=== PATIENT | female | born 1935 | race African-American/Black ===

== ENCOUNTER → 2017-03-17 | Outpatient (CLI) | payer MEDICARE ==
[2016-03-19 01:50] VITALS: BP 136/64
[~2017-03-17] MED LIST: AMLO10TA4 PO; ASPI81TA2 PO; ATEN50TA PO; HUM100VI5 SQ; HYDR12.58 PO; LISI-334 PO; METF500T4 PO; SIMV20TA3 PO
--- NOTE | 2017-03-17 12:11 | RAD ---
Abdominal ultrasound, 03/17/2017: History: Elevated right hemidiaphragm The gallbladder is within normal limits in size. There is no sonographic evidence of cholelithiasis. The gallbladder rosales are not thickened. No bile duct dilatation is evident. There is no evidence of a hepatic mass. The visualized portions of the pancreatic body are unremarkable. Other portions of the pancreas were obscured by overlying bowel. The spleen is of normal size. There is a 1.7 cm parapelvic renal cyst on the right. The kidneys are otherwise unremarkable. There is mild aortic atherosclerotic plaquing without evidence of aneurysm. The inferior vena cava is unremarkable. No free fluid is evident in the abdomen. IMPRESSION: 1. Small right renal cyst. 2. No acute abdominal abnormality is detected.
== END | disposition home or self-care (01) ==
LOC: US 09:42
PROVIDERS: ATTEND Nurse Practitioner Adult Health
DX: N28.1 Cyst of kidney, acquired (principal)
CPT/HCPCS: 76700

== ENCOUNTER 2017-12-11 13:30 | Inpatient (IN) | payer MEDICARE ==
[2017-12-11] VITALS (16 sets, daily range): BP systolic 80–132; BP diastolic 39–61
[~2017-12-11] VITALS: Ht 160 cm; Wt 63.1 kg
[~2017-12-11 13:30] MED LIST changes: +ASPI-630 PO; -ASPI81TA2 PO
[2017-12-11] MEDS ORDERED: OLOP5DRO EACHEYE (14:41)
[2017-12-11] MEDS ORDERED: INSU100V13 SQ (14:41)
[2017-12-11] MEDS ORDERED: ATORVASTATIN CA80 MG PO (14:41)
[2017-12-11] MEDS ORDERED: FLUT9.9S NS (14:41)
[2017-12-11] MEDS ORDERED: CARV12.5 PO (14:41)
[2017-12-11] MEDS ORDERED: ALBU1.25 NEB (14:41)
[2017-12-11] MEDS ORDERED: FERR-26 PO (14:41)
[2017-12-11] MEDS ORDERED: SODI30SP NS (14:41)
[2017-12-11] MEDS ORDERED: INSU200I SQ (14:43)
[2017-12-11] MEDS ORDERED: NON FORMULARY ITEM (Albuterol Sulfate (Albuterol Sulfate Neb Soln) 1 VIAL) NEB PRN (14:45)
[2017-12-11 14:50] LABS: INFLUENZA A PATIENT NEGATIVE (NEGATIVE); INFLUENZA B PATIENT NEGATIVE (NEGATIVE)
[2017-12-11 14:51] LABS: BASO # 0.1 x10^3/uL (0.0-0.2); BASO % 1 % (0-3); EOS % 1 % (0-3); HEMATOCRIT 30.2 % (36.0-47.0); LYMPH # 1.4 x10^3/uL (1.0-4.8); LYMPH % 22 % (24-48); MEAN CORPUSCULAR HEMOGLOBIN 27 pg (25-35); MEAN CORPUSCULAR HGB CONC 33 g/dL (31-37); MEAN CORPUSCULAR VOLUME 83 fL (79-100); MONO # 0.5 x10^3/uL (0.0-1.1); MONO % 8 % (0-9); NEUT # 4.4 x10^3uL (1.8-7.7); NEUT % 68 % (31-73); PLATELET COUNT 193 x10^3/uL (140-400); RED BLOOD COUNT 3.63 x10^6/uL (3.50-5.40); RED CELL DISTRIBUTION WIDTH 12.9 % (11.5-14.5); WHITE BLOOD COUNT 6.5 x10^3/uL (4.0-11.0)
[2017-12-11] MEDS: IV NORMAL SALINE 1,000ML 1,000 ML IV SCH ×4 (15:11→19:54)
[2017-12-11 15:15] LABS: ALBUMIN 2.4 g/dL (3.4-5.0); ALBUMIN/GLOBULIN RATIO 0.5 (1.0-1.7); CALCIUM 8.9 mg/dL (8.5-10.1); CREATININE 1.3 mg/dL (0.6-1.0); GFR 47.2; MAGNESIUM 1.2 mg/dL (1.8-2.4); POTASSIUM 3.3 mmol/L (3.5-5.1); TOTAL BILIRUBIN 0.5 mg/dL (0.2-1.0); TOTAL PROTEIN 6.8 g/dL (6.4-8.2)
--- NOTE | 2017-12-11 15:18 | EKG ---
[address] [address] Test Date: 2017-12-11 Test Time: 15:14:58 Pat Name: TUNDE LORENZO Department: Room: ICU01 1 Gender: F Executive Producer: : [id number] Requested By: CAMACHO DUNHAM Order Number: [id number] Reading MD: Ralph Alejandra MD Measurements Intervals [place] Rate: 91 P: 70 WV: 168 QRS: 45 QRSD: 78 T: 40 QT: 372 QTc: 459 Interpretive Statements SINUS RHYTHM CONSISTENT WITH ANTEROSEPTAL INFARCT Electronically Signed On 12-16-2017 16:49:15 KILN HAND by Ralph Alejandra MD
[2017-12-11] MEDS ORDERED: ALBUTEROL SULFATE 2.5 MG/3 ML NEBU. NEB PRN (15:30)
[2017-12-11] MEDS: INSULIN ASPART 300 UNITS/3 ML INSULN.PEN SQ SCH ×2 (16:06→21:00)
--- NOTE | 2017-12-11 16:10 | RAD ---
Chest, 2 views, 12/11/2017: History: Cough Comparison is made to a study from 06/17/2006. The heart size and pulmonary vascularity are normal. No pulmonary infiltrates are seen. There is no evidence of pleural fluid. Moderate spurring is present in the spine. IMPRESSION: No acute cardiopulmonary abnormality is detected.
[2017-12-11 16:14] LABS: BILIRUBIN,URINE NEG (NEG); CLARITY,URINE TURBID; COLOR,URINE YELLOW; GLUCOSE,URINE >=1000 mg/dL (NEG)
[2017-12-11 16:15] LABS: AMORPHOUS SEDIMENT,UR PRESENT /HPF; BACTERIA,URINE MANY /HPF (0-FEW); NITRITE,URINE NEG (NEG); SQUAMOUS EPITHELIAL CELL,UR MOD /LPF; UROBILINOGEN,URINE 1 mg/dL (0.2 mg/dL)
[2017-12-11] MEDS ORDERED: POTASSIUM CHLORIDE 20 MEQ TABLET.ER. PO ONE (16:15)
[2017-12-11] MEDS ORDERED: MAGNESIUM SULFATE 2GM 50 ML IV ONE (16:30)
[2017-12-11] MEDS ORDERED: IV NORMAL SALINE 1,000ML 1,000 ML IV ONE (16:45)
[2017-12-11] MEDS: CARVEDILOL 12.5 MG TABLET PO SCH (16:49)
[2017-12-11] MEDS: metFORMIN 500 MG TABLET PO SCH (16:49)
[2017-12-11] MEDS: SODIUM CHLORIDE 0.65% NASAL SPRAY 45ML BOTTLE. NS SCH ×2 (17:00→20:43)
[2017-12-11] MEDS ORDERED: INSULIN ASPART 300 UNITS/3 ML INSULN.PEN SQ PRN ×2 (17:30)
[2017-12-11] MEDS ORDERED: VANCOMYCIN PER PHARMACY MC PRN (19:30)
[2017-12-11] MEDS: VANCOMYCIN PER PHARMACY MC PRN ×2 (20:00→22:24)
[2017-12-11] MEDS: ENOXAPARIN 30 MG/0.3 ML DISP.SYRIN. SQ SCH (20:44)
[2017-12-11] MEDS: LACTOBACILLUS RHAMNOSUS GG 1 CAPSULE. PO SCH (20:44)
[2017-12-11] MEDS: KETOTIFEN FUMARATE 0.025% OPHT SOLUTION BOTTLE. OU SCH (20:44)
[2017-12-11] MEDS: ATORVASTATIN CALCIUM 20 MG TABLET PO SCH (20:44)
[2017-12-11] MEDS ORDERED: INSULIN DETEMIR 300 UNITS/3 ML INSULN.PEN. SQ SCH (21:00)
[2017-12-11] MEDS ORDERED: VANCOMYCIN 1.5 GM in IV NORMAL SALINE 500ML 500 ML IV ONE (21:00)
[2017-12-11] MEDS: INSULIN DETEMIR 300 UNITS/3 ML INSULN.PEN. SQ SCH (21:00)
[2017-12-11 23:01] LABS: CALCIUM 8.9 mg/dL (8.5-10.1); GFR 63.9; POTASSIUM 3.3 mmol/L (3.5-5.1)
[2017-12-12] VITALS (18 sets, daily range): BP systolic 84–153; BP diastolic 44–77
[2017-12-12] MEDS: DEXTROSE 50% 25 GM / 50ML DISP.SYRIN. IV PRN (00:50)
[2017-12-12 03:16] LABS: HEMOGLOBIN A1C 8.9 % (4.8-5.6)
[2017-12-12 06:48] LABS: BASO % 0 % (0-3); EOS # 0.1 x10^3/uL (0.0-0.7); EOS % 1 % (0-3); HEMATOCRIT 27.5 % (36.0-47.0); HEMOGLOBIN 9.4 g/dL (12.0-15.5); LYMPH # 1.4 x10^3/uL (1.0-4.8); LYMPH % 28 % (24-48); MEAN CORPUSCULAR HEMOGLOBIN 28 pg (25-35); MEAN CORPUSCULAR HGB CONC 34 g/dL (31-37); MEAN CORPUSCULAR VOLUME 82 fL (79-100); MONO # 0.4 x10^3/uL (0.0-1.1); MONO % 9 % (0-9); NEUT % 62 % (31-73); PLATELET COUNT 178 x10^3/uL (140-400); RED BLOOD COUNT 3.35 x10^6/uL (3.50-5.40); WHITE BLOOD COUNT 4.9 x10^3/uL (4.0-11.0)
[2017-12-12 07:09] LABS: ALBUMIN 2.1 g/dL (3.4-5.0); ALBUMIN/GLOBULIN RATIO 0.5 (1.0-1.7); CALCIUM 8.4 mg/dL (8.5-10.1); CREATININE 0.8 mg/dL (0.6-1.0); GFR 82.7; MAGNESIUM 1.4 mg/dL (1.8-2.4); POTASSIUM 3.5 mmol/L (3.5-5.1); TOTAL BILIRUBIN 0.4 mg/dL (0.2-1.0); TOTAL PROTEIN 6.2 g/dL (6.4-8.2)
[2017-12-12] MEDS: INSULIN ASPART 300 UNITS/3 ML INSULN.PEN SQ SCH ×7 (07:30→20:56)
[2017-12-12] MEDS: hydroCHLOROthiazide 25 MG TABLET PO SCH (08:55)
[2017-12-12] MEDS: LACTOBACILLUS RHAMNOSUS GG 1 CAPSULE. PO SCH ×2 (08:55→20:22)
[2017-12-12] MEDS: amLODIPine BESYLATE 10 MG TABLET PO SCH ×2 (08:56→09:00)
[2017-12-12] MEDS: FERROUS SULFATE 325 MG TABLET. PO SCH (08:56)
[2017-12-12] MEDS: CARVEDILOL 12.5 MG TABLET PO SCH ×2 (08:56→16:43)
[2017-12-12] MEDS: FLUTICASONE 50MCG/NASAL SPRAY 16GM BOTTLE. NS SCH (08:56)
[2017-12-12] MEDS: SODIUM CHLORIDE 0.65% NASAL SPRAY 45ML BOTTLE. NS SCH ×4 (08:56→20:26)
[2017-12-12] MEDS: KETOTIFEN FUMARATE 0.025% OPHT SOLUTION BOTTLE. OU SCH ×2 (08:56→20:26)
[2017-12-12] MEDS: metFORMIN 500 MG TABLET PO SCH ×2 (08:57→16:44)
[2017-12-12] MEDS: INSULIN DETEMIR 300 UNITS/3 ML INSULN.PEN. SQ SCH ×3 (08:59→20:56)
[2017-12-12] MEDS: LISINOPRIL 20 MG TABLET PO SCH (09:00)
[2017-12-12] MEDS: HYDROcodone/CHLORPHEN POLIS 5 ML SUS.ER.12H PO PRN (11:19)
[2017-12-12] MEDS: guaiFENesin DM 600/30MG 1 TAB TAB.ER.12H PO SCH ×2 (11:19→20:22)
[2017-12-12] MEDS: IPRATRPIUM/ALBUTEROL 0.5/2.5MG 3 ML NEBU. NEB SCH ×3 (11:46→21:16)
[2017-12-12] MEDS ORDERED: DICYCLOMINE HCL 10 MG CAPSULE PO PRN (15:15)
[2017-12-12] MEDS ORDERED: ACETAMINOPHEN 325 MG TABLET PO PRN (15:30)
[2017-12-12] MEDS ORDERED: MAGNESIUM SULFATE 2GM 50 ML IV ONE (15:30)
[2017-12-12] MEDS: IV NORMAL SALINE 1,000ML 1,000 ML IV SCH (17:52)
[2017-12-12] MEDS ORDERED: ONDANSETRON PF 4 MG/2 ML VIAL. IV PRN (19:45)
[2017-12-12] MEDS: ENOXAPARIN 30 MG/0.3 ML DISP.SYRIN. SQ SCH (20:21)
[2017-12-12] MEDS: ATORVASTATIN CALCIUM 20 MG TABLET PO SCH (20:22)
[2017-12-12] MEDS: VANCOMYCIN 750 MG in IV NORMAL SALINE 250ML 250 ML IV SCH (21:29)
--- NOTE | 2017-12-13 04:56 | PN ---
DATE: 12/12/2017 SUBJECTIVE: An 82-year-old female in with sepsis, hypotension. The patient is doing some better this morning. OBJECTIVE: VITAL SIGNS: Blood pressure is up to 135/60, respiratory rate 22, pulse 110 to 80. She is afebrile. GENERAL: The patient otherwise looks like she has a bad bladder infection. Chest x-ray was negative. Sed rate was up to 58, white count 4.9; otherwise, alert, still not feeling very well, overall very weak. LUNGS: Diminished throughout. CARDIOVASCULAR: Regular sinus rhythm. ABDOMEN: Soft, nontender. EXTREMITIES: No clubbing, cyanosis, no edema. NEUROLOGIC: The patient is alert and oriented at baseline. IMPRESSION: Sepsis, hypotension, urinary tract infection, anemia of chronic disease. PLAN: We will go ahead and continue to monitor accordingly. IV antibiotic therapy, aggressive pulmonary toilet. Does have some coughing and flu swabs were negative. No elevated temperature there. CAMACHO DUNHAM MD DR: MARCELO/preethi JOB#: [id number] / [id number]
[2017-12-13] MEDS: IPRATRPIUM/ALBUTEROL 0.5/2.5MG 3 ML NEBU. NEB SCH ×4 (05:19→21:19)
[2017-12-13 06:06] VITALS: BP 151/75
[2017-12-13] MEDS: IV NORMAL SALINE 1,000ML 1,000 ML IV SCH ×2 (06:32→20:11)
[2017-12-13] MEDS: hydroCHLOROthiazide 25 MG TABLET PO SCH (08:03)
[2017-12-13] MEDS: guaiFENesin DM 600/30MG 1 TAB TAB.ER.12H PO SCH ×2 (08:03→20:05)
[2017-12-13] MEDS: LACTOBACILLUS RHAMNOSUS GG 1 CAPSULE. PO SCH ×2 (08:03→20:06)
[2017-12-13] MEDS: CARVEDILOL 12.5 MG TABLET PO SCH ×2 (08:04→17:42)
[2017-12-13] MEDS: amLODIPine BESYLATE 10 MG TABLET PO SCH (08:04)
[2017-12-13] MEDS: metFORMIN 500 MG TABLET PO SCH (08:04)
[2017-12-13] MEDS: FERROUS SULFATE 325 MG TABLET. PO SCH (08:04)
[2017-12-13] MEDS: LISINOPRIL 20 MG TABLET PO SCH (08:04)
[2017-12-13] MEDS: KETOTIFEN FUMARATE 0.025% OPHT SOLUTION BOTTLE. OU SCH ×2 (08:05→20:13)
[2017-12-13] MEDS: SODIUM CHLORIDE 0.65% NASAL SPRAY 45ML BOTTLE. NS SCH ×4 (08:05→20:12)
[2017-12-13] MEDS: INSULIN ASPART 300 UNITS/3 ML INSULN.PEN SQ SCH ×6 (08:09→19:57)
[2017-12-13] MEDS: INSULIN DETEMIR 300 UNITS/3 ML INSULN.PEN. SQ SCH (08:11)
[2017-12-13] MEDS: FLUTICASONE 50MCG/NASAL SPRAY 16GM BOTTLE. NS SCH ×2 (09:00→20:05)
[2017-12-13] MEDS ORDERED: FLU VACC QS2017-18 (36MOS+)/PF 0.5 ML SYRINGE. VAX IM ONE (09:00)
[2017-12-13] MEDS ORDERED: PNEUMOC CONJ VACC 23-VALENT 0.5 ML VIAL. VAX IM ONE (09:00)
[2017-12-13 10:26] VITALS: BP 114/62
[2017-12-13 15:23] VITALS: BP 108/65
--- NOTE | 2017-12-13 16:03 | RAD ---
Indication: Cough. Technique: Two-view chest radiograph was obtained. Comparison is from 2 days earlier. Findings: There are new bilateral small pleural effusions. There is some associated atelectasis. There is no airspace disease. Heart is not enlarged and there is no heart failure. There is atheromatous disease in the thoracic aorta. There are degenerative changes in the spine. Leads overlie the patient. Impression: Small pleural effusions with associated atelectasis now present.
[2017-12-13] MEDS: DEXTROSE 50% 25 GM / 50ML DISP.SYRIN. IV PRN (17:21)
[2017-12-13 19:39] VITALS: BP 97/53
[2017-12-13] MEDS ORDERED: IPRATRPIUM/ALBUTEROL 0.5/2.5MG 3 ML NEBU. NEB SCH (20:00)
[2017-12-13] MEDS: ATORVASTATIN CALCIUM 20 MG TABLET PO SCH (20:05)
[2017-12-13] MEDS: ENOXAPARIN 30 MG/0.3 ML DISP.SYRIN. SQ SCH (20:05)
[2017-12-13] MEDS: HYDROcodone/CHLORPHEN POLIS 5 ML SUS.ER.12H PO PRN (20:05)
[2017-12-13 20:35] LABS: VANC TR 5.5 mcg/mL (10.0-20.0)
[2017-12-13] MEDS: VANCOMYCIN 750 MG in IV NORMAL SALINE 250ML 250 ML IV SCH (21:09)
[2017-12-13 23:21] VITALS: BP 119/62
[2017-12-14] MEDS: IPRATRPIUM/ALBUTEROL 0.5/2.5MG 3 ML NEBU. NEB SCH ×3 (05:18→20:12)
[2017-12-14 06:08] VITALS: BP 156/76
[2017-12-14] MEDS: INSULIN ASPART 300 UNITS/3 ML INSULN.PEN SQ SCH ×4 (07:30→21:00)
[2017-12-14] MEDS: VANCOMYCIN PER PHARMACY MC PRN (07:43)
[2017-12-14] MEDS: LACTOBACILLUS RHAMNOSUS GG 1 CAPSULE. PO SCH ×2 (08:07→19:46)
[2017-12-14] MEDS: guaiFENesin DM 600/30MG 1 TAB TAB.ER.12H PO SCH ×2 (08:07→19:46)
[2017-12-14] MEDS: hydroCHLOROthiazide 25 MG TABLET PO SCH (08:07)
[2017-12-14] MEDS: KETOTIFEN FUMARATE 0.025% OPHT SOLUTION BOTTLE. OU SCH ×2 (08:07→19:47)
[2017-12-14] MEDS: CARVEDILOL 12.5 MG TABLET PO SCH ×2 (08:07→17:08)
[2017-12-14] MEDS: LISINOPRIL 20 MG TABLET PO SCH (08:07)
[2017-12-14] MEDS: SODIUM CHLORIDE 0.65% NASAL SPRAY 45ML BOTTLE. NS SCH ×4 (08:08→19:49)
[2017-12-14] MEDS: amLODIPine BESYLATE 10 MG TABLET PO SCH (08:08)
[2017-12-14] MEDS: FERROUS SULFATE 325 MG TABLET. PO SCH (08:11)
[2017-12-14] MEDS: FUROSEMIDE 20 MG/2 ML VIAL IVP SCH (09:42)
--- NOTE | 2017-12-14 11:39 | PN ---
DATE: 12/13/2017 SUBJECTIVE: The patient is resting fairly comfortably, little bit stronger, able to walk around with PT, OT; however, very weak. The patient showed some drop in her blood pressure when she stands up straight, tried to put some JOBST stocking or MILY hoses on her to see if that does not help correct that. Otherwise, she has a very loose calf. OBJECTIVE: VITAL SIGNS: Blood pressure 115/60, respiratory 20, pulse 90, afebrile. GENERAL: The patient is alert and oriented. LUNGS: Show coarse breath sounds throughout. CARDIOVASCULAR: Regular sinus rhythm, S1, S2. ABDOMEN: Soft, nontender. EXTREMITIES: No clubbing, cyanosis, nor edema. NEUROLOGIC: The patient more alert, stable. PLAN: We will go ahead and continue with rehabilitation, monitor her orthostatics and make further assessment on her. IMPRESSION: Sepsis, hypotension, urinary tract infection, anemia of chronic disease. Culture sensitivity report is still pending. CAMACHO DUNHAM MD DR: MARCELO/preethi JOB#: [id number] / [id number]
[2017-12-14 11:42] VITALS: BP 156/80
[2017-12-14 11:46] LABS: BACTERIA,URINE 0 /HPF (0-FEW); BILIRUBIN,URINE NEG (NEG); CLARITY,URINE CLEAR; COLOR,URINE STRAW; GLUCOSE,URINE NEG (NEG); NITRITE,URINE NEG (NEG); RBC,URINE 0 /HPF (0-2); SQUAMOUS EPITHELIAL CELL,UR OCC /LPF; UROBILINOGEN,URINE 0.2 mg/dL (0.2 mg/dL); WBC,URINE 0 /HPF (0-4)
[2017-12-14 15:50] VITALS: BP 170/76
[2017-12-14] MEDS: VANCOMYCIN 1 GM in IV NORMAL SALINE 250ML 250 ML IV SCH (17:08)
[2017-12-14 19:46] VITALS: BP 155/75
[2017-12-14] MEDS: ATORVASTATIN CALCIUM 20 MG TABLET PO SCH (19:46)
[2017-12-14] MEDS: ENOXAPARIN 30 MG/0.3 ML DISP.SYRIN. SQ SCH (19:46)
[2017-12-14 23:18] VITALS: BP 157/79
[2017-12-15] MEDS: IPRATRPIUM/ALBUTEROL 0.5/2.5MG 3 ML NEBU. NEB SCH ×3 (05:20→21:00)
[2017-12-15 05:26] VITALS: BP 133/70
[2017-12-15] MEDS: INSULIN ASPART 300 UNITS/3 ML INSULN.PEN SQ SCH ×4 (07:30→21:00)
[2017-12-15] MEDS: FUROSEMIDE 20 MG/2 ML VIAL IVP SCH (09:10)
[2017-12-15] MEDS: LACTOBACILLUS RHAMNOSUS GG 1 CAPSULE. PO SCH ×2 (09:10→19:28)
[2017-12-15] MEDS: FERROUS SULFATE 325 MG TABLET. PO SCH (09:10)
[2017-12-15] MEDS: LISINOPRIL 20 MG TABLET PO SCH (09:11)
[2017-12-15] MEDS: amLODIPine BESYLATE 10 MG TABLET PO SCH (09:12)
[2017-12-15] MEDS: CARVEDILOL 12.5 MG TABLET PO SCH ×2 (09:12→17:36)
[2017-12-15] MEDS: guaiFENesin DM 600/30MG 1 TAB TAB.ER.12H PO SCH ×2 (09:12→19:28)
[2017-12-15] MEDS: KETOTIFEN FUMARATE 0.025% OPHT SOLUTION BOTTLE. OU SCH ×2 (09:15→19:30)
[2017-12-15] MEDS: FLUTICASONE 50MCG/NASAL SPRAY 16GM BOTTLE. NS SCH ×2 (09:17→19:31)
[2017-12-15] MEDS: SODIUM CHLORIDE 0.65% NASAL SPRAY 45ML BOTTLE. NS SCH ×4 (09:18→19:31)
--- NOTE | 2017-12-15 09:28 | PN ---
DATE: SUBJECTIVE: The patient initially in with sugars over 500 and the like, also sepsis and hypotension, and now seems to have the opposite problem. Her blood sugar went down to 37. Her blood pressure is up to 160/76, respiratory rate 16, pulse in the 90s, presently afebrile, but has a very wet cough. New chest x-ray showed mild fluid accumulation, so give her Lasix, discontinue her IV fluids. Continue on IV antibiotic therapy. Collect sputum for C and S and make further evaluation on her. Her urine culture was contaminated, so we will try to repeat that and continue with breathing treatments and the like. PHYSICAL EXAMINATION: LUNGS: Diminished, but coarse breath sounds, rhonchi noted throughout. CARDIOVASCULAR: Regular sinus rhythm. ABDOMEN: Soft, nontender. The patient says she is feeling better, so we are making progress there. CAMACHO DUNHAM MD DR: MARCELO/preethi JOB#: [id number] / [id number]
[2017-12-15 11:02] VITALS: BP 171/80
[2017-12-15 15:32] VITALS: BP 136/66
[2017-12-15] MEDS: VANCOMYCIN 1 GM in IV NORMAL SALINE 250ML 250 ML IV SCH (17:13)
[2017-12-15 18:41] VITALS: BP 153/70
[2017-12-15] MEDS: ATORVASTATIN CALCIUM 20 MG TABLET PO SCH (19:28)
[2017-12-15] MEDS: ENOXAPARIN 30 MG/0.3 ML DISP.SYRIN. SQ SCH (19:28)
[2017-12-15] MEDS: methylPREDNISolone SOD SUCC PF 40 MG/ML VIAL. IV SCH (19:36)
[2017-12-16 00:06] VITALS: BP 149/72
[2017-12-16 05:37] VITALS: BP 152/67
[2017-12-16] MEDS: IPRATRPIUM/ALBUTEROL 0.5/2.5MG 3 ML NEBU. NEB SCH ×2 (05:48→11:09)
[2017-12-16] MEDS: methylPREDNISolone SOD SUCC PF 40 MG/ML VIAL. IV SCH (08:30)
[2017-12-16] MEDS: FUROSEMIDE 20 MG/2 ML VIAL IVP SCH (08:30)
[2017-12-16] MEDS: FERROUS SULFATE 325 MG TABLET. PO SCH (08:31)
[2017-12-16] MEDS: guaiFENesin DM 600/30MG 1 TAB TAB.ER.12H PO SCH (08:31)
[2017-12-16] MEDS: LACTOBACILLUS RHAMNOSUS GG 1 CAPSULE. PO SCH (08:31)
[2017-12-16] MEDS: CARVEDILOL 12.5 MG TABLET PO SCH (08:31)
[2017-12-16] MEDS: amLODIPine BESYLATE 10 MG TABLET PO SCH (08:32)
[2017-12-16] MEDS: KETOTIFEN FUMARATE 0.025% OPHT SOLUTION BOTTLE. OU SCH (08:36)
[2017-12-16] MEDS: LISINOPRIL 20 MG TABLET PO SCH (08:36)
[2017-12-16] MEDS: SODIUM CHLORIDE 0.65% NASAL SPRAY 45ML BOTTLE. NS SCH (08:36)
[2017-12-16] MEDS: INSULIN ASPART 300 UNITS/3 ML INSULN.PEN SQ SCH ×2 (08:40→12:12)
[2017-12-16 11:03] VITALS: BP_SYST 138; BP_SYST 150; BP_DIAS 66; BP_DIAS 71
[2017-12-16] MEDS ORDERED: INSULIN ASPART 300 UNITS/3 ML INSULN.PEN SQ ONE (12:10)
[2017-12-16] MEDS ORDERED: FURO20TA3 PO (15:16)
[2017-12-16] MEDS ORDERED: KETO5DRO4 EACHEYE (15:16)
[2017-12-16] MEDS ORDERED: VANC1PLA17 IV (15:23)
--- NOTE | 2017-12-16 16:14 | PN ---
DATE: SUBJECTIVE: An 82-year-old female came in with basically hypoglycemia, sepsis. Resting fairly comfortably. She has been having severe bronchospasm and difficulty in breathing. The patient has been getting breathing treatments, IV Solu-Medrol. Continue to monitor the patient accordingly. She is improved, may go to skilled. OBJECTIVE: VITAL SIGNS: Blood pressure 136/60, respiratory rate 20, pulse 100, afebrile. GENERAL: The patient alert and oriented. LUNGS: Diminished, but clear than they have been less bronchospasm, but still present. PLAN: The patient continued to be monitored carefully make further evaluation on her as indicated. IMPRESSION: Sepsis, hypotension, urinary tract infection, hypoglycemia, anemia of chronic disease, hyperglycemia, diabetic ketoacidosis. CAMACHO DUNHAM MD DR: MARCELO/preethi JOB#: [id number] / [id number]
== END 2017-12-16 13:08 | DRG 871 ==
LOC: ICU 13:30 → 1 SOUTH 12-12 15:30
PROVIDERS: ADMIT Family Medicine; ATTEND Family Medicine
DX: A41.9 Sepsis, unspecified organism (principal); E11.10 Type 2 diabetes mellitus with ketoacidosis without coma; I95.9 Hypotension, unspecified; E11.649 Type 2 diabetes mellitus with hypoglycemia without coma; D63.8 Anemia in other chronic diseases classified elsewhere; N39.0 Urinary tract infection, site not specified; E11.65 Type 2 diabetes mellitus with hyperglycemia; J98.01 Acute bronchospasm; I10 Essential (primary) hypertension; E78.5 Hyperlipidemia, unspecified; J30.9 Allergic rhinitis, unspecified; M19.90 Unspecified osteoarthritis, unspecified site
CPT/HCPCS: 36415; 71046; 80048; 80053; 80202; 81001; 82553; 82947; 83036; 83605; 83735; 84484; 85025; 85379; 85651; 86140; 86738; 87040; 87070; 87086; 87205; 87641; 87804; 90686; 90732; 93005; 94640; J1650; J1815; J1956; J2405; J2920; J3370; J3475; J7040; J7050; J7620; 97110; 97530; 97535; J7030

== ENCOUNTER 2017-12-16 09:22 | Inpatient (IN) | payer MEDICARE ==
[~2017-12-16] VITALS: Ht 160 cm; Wt 66.2 kg
[~2017-12-16 09:22] MED LIST changes: +ALBU1.25 NEB; +ATORVASTATIN CA80 MG PO; +CARV12.5 PO; +FERR-26 PO; +FLUT9.9S NS; +INSU100V13 SQ; +INSU200I SQ; +OLOP5DRO EACHEYE; +SODI30SP NS
[2017-12-16] MEDS ORDERED: NON FORMULARY ITEM (Albuterol Sulfate (Albuterol Sulfate Neb Soln) 1 VIAL) NEB PRN (14:15)
[2017-12-16] MEDS ORDERED: KETO5DRO4 EACHEYE (15:16)
[2017-12-16] MEDS ORDERED: FURO20TA3 PO (15:16)
[2017-12-16] MEDS ORDERED: VANC1PLA17 IV (15:23)
[2017-12-16] MEDS ORDERED: ALBUTEROL SULFATE 2.5 MG/3 ML NEBU. NEB PRN (15:30)
[2017-12-16] MEDS ORDERED: ACETAMINOPHEN 325 MG TABLET PO PRN (16:00)
[2017-12-16] MEDS ORDERED: VANCOMYCIN PER PHARMACY MC PRN (16:00)
[2017-12-16] MEDS ORDERED: DEXTROSE 50% 25 GM / 50ML DISP.SYRIN. IV PRN (16:00)
[2017-12-16] MEDS ORDERED: ONDANSETRON PF 4 MG/2 ML VIAL. IV PRN (16:00)
[2017-12-16] MEDS ORDERED: DICYCLOMINE HCL 10 MG CAPSULE PO PRN (16:00)
[2017-12-16] MEDS ORDERED: VANCOMYCIN 1 GM in IV NORMAL SALINE 250ML 250 ML IV SCH (16:00)
[2017-12-16 16:45] LABS: VANC TR 6.1 mcg/mL (10.0-20.0)
[2017-12-16] MEDS: VANCOMYCIN 1 GM in IV NORMAL SALINE 250ML 250 ML IV SCH (17:15)
[2017-12-16] MEDS: INSULIN ASPART 300 UNITS/3 ML INSULN.PEN SQ SCH ×2 (17:31→21:00)
[2017-12-16] MEDS ORDERED: INSULIN ASPART 300 UNITS/3 ML INSULN.PEN SQ ONE (17:45)
[2017-12-16] MEDS: ENOXAPARIN 30 MG/0.3 ML DISP.SYRIN. SQ SCH (18:39)
[2017-12-16] MEDS: CARVEDILOL 12.5 MG TABLET PO SCH (18:39)
[2017-12-16] MEDS: SODIUM CHLORIDE 0.65% NASAL SPRAY 45ML BOTTLE. NS SCH ×2 (18:41→21:00)
[2017-12-16 19:00] VITALS: BP 141/80
[2017-12-16] MEDS: levoFLOXacin 250 MG TABLET PO SCH (20:00)
[2017-12-16 20:24] VITALS: BP 149/66
[2017-12-16] MEDS: methylPREDNISolone SOD SUCC PF 40 MG/ML VIAL. IV SCH (21:00)
[2017-12-16] MEDS: INSULIN DETEMIR 300 UNITS/3 ML INSULN.PEN. SQ SCH (21:00)
[2017-12-16] MEDS ORDERED: INSULIN DETEMIR 300 UNITS/3 ML INSULN.PEN. SQ SCH (21:00)
[2017-12-16] MEDS: ATORVASTATIN CALCIUM 20 MG TABLET PO SCH (21:00)
[2017-12-16] MEDS: guaiFENesin DM 600/30MG 1 TAB TAB.ER.12H PO SCH (21:00)
[2017-12-16] MEDS: KETOTIFEN FUMARATE 0.025% OPHT SOLUTION BOTTLE. OU SCH (21:00)
[2017-12-16] MEDS: LACTOBACILLUS RHAMNOSUS GG 1 CAPSULE. PO SCH (21:00)
[2017-12-16] MEDS: IPRATRPIUM/ALBUTEROL 0.5/2.5MG 3 ML NEBU. NEB SCH (22:04)
--- NOTE | 2017-12-17 01:45 | DS ---
DATE OF DISCHARGE: 12/16/2017 HOSPITAL COURSE: Discharged today to the skilled unit. The patient initially came in with elevated blood sugars of 500 or more and was noted to be septic. She had elevated lactic acid levels severe bronchospasm, difficulty in breathing. The patient received IV Solu-Medrol and antibiotic therapy and was monitored carefully of aggressive pulmonary toilet and steroids. She made reasonably good progress during the rest of her hospitalization. Influenza was negative. Hemoglobin slightly low at 9.4 and 27. The patient's sugars have been monitored carefully and she is being adjusted as well as receiving physical and occupational therapy. Her D-dimer was elevated. The patient had elevated sedimentation rate of 58. Oxygen saturation is 97%, resting fairly comfortably made good progress and was discharged to the skilled unit for further evaluation and treatment. IMPRESSION: Hyperglycemia, acute bronchospasm. The other diagnoses include sepsis, hypotension, urinary tract infection, anemia of chronic disease, hyperglycemia, bronchospasm. The patient will be on regular diet, decreased activity, skilled unit. Continue to monitor her carefully there. CAMACHO DUNHAM MD DR: MARCELO/preethi JOB#: [id number] / [id number]
[2017-12-17] MEDS: VANCOMYCIN 1 GM in IV NORMAL SALINE 250ML 250 ML IV SCH ×2 (05:11→17:16)
[2017-12-17 05:28] VITALS: BP 149/66
[2017-12-17] MEDS: IPRATRPIUM/ALBUTEROL 0.5/2.5MG 3 ML NEBU. NEB SCH ×3 (05:55→21:48)
[2017-12-17] MEDS: guaiFENesin DM 600/30MG 1 TAB TAB.ER.12H PO SCH ×2 (08:28→20:29)
[2017-12-17] MEDS: LISINOPRIL 20 MG TABLET PO SCH (08:28)
[2017-12-17] MEDS: amLODIPine BESYLATE 10 MG TABLET PO SCH (08:29)
[2017-12-17] MEDS: CARVEDILOL 12.5 MG TABLET PO SCH ×2 (08:31→17:03)
[2017-12-17] MEDS: LACTOBACILLUS RHAMNOSUS GG 1 CAPSULE. PO SCH ×2 (08:31→20:28)
[2017-12-17] MEDS: FERROUS SULFATE 325 MG TABLET. PO SCH (08:31)
[2017-12-17] MEDS: methylPREDNISolone SOD SUCC PF 40 MG/ML VIAL. IV SCH ×2 (08:32→20:29)
[2017-12-17] MEDS: FUROSEMIDE 20 MG TABLET PO SCH (08:32)
[2017-12-17] MEDS: INSULIN ASPART 300 UNITS/3 ML INSULN.PEN SQ SCH ×4 (08:36→20:41)
[2017-12-17] MEDS: FLUTICASONE 50MCG/NASAL SPRAY 16GM BOTTLE. NS SCH (08:37)
[2017-12-17] MEDS: SODIUM CHLORIDE 0.65% NASAL SPRAY 45ML BOTTLE. NS SCH ×4 (08:37→20:29)
[2017-12-17] MEDS: KETOTIFEN FUMARATE 0.025% OPHT SOLUTION BOTTLE. OU SCH ×2 (08:38→20:29)
[2017-12-17] MEDS ORDERED: amLODIPine BESYLATE 10 MG TABLET PO SCH (09:00)
[2017-12-17] MEDS: POLYETHYLENE GLYCOL 3350 17 GM PACKET. PO PRN (13:04)
[2017-12-17 16:39] LABS: VANC TR 9.8 mcg/mL (10.0-20.0)
[2017-12-17 16:42] VITALS: BP 139/72
[2017-12-17] MEDS: ENOXAPARIN 30 MG/0.3 ML DISP.SYRIN. SQ SCH (17:03)
[2017-12-17] MEDS: levoFLOXacin 250 MG TABLET PO SCH (20:28)
[2017-12-17] MEDS: ATORVASTATIN CALCIUM 20 MG TABLET PO SCH (20:29)
[2017-12-17] MEDS ORDERED: INSULIN ASPART 300 UNITS/3 ML INSULN.PEN SQ ONE (20:30)
[2017-12-17] MEDS: INSULIN DETEMIR 300 UNITS/3 ML INSULN.PEN. SQ SCH (20:40)
[2017-12-18] MEDS: VANCOMYCIN 1 GM in IV NORMAL SALINE 250ML 250 ML IV SCH ×2 (04:52→17:11)
[2017-12-18 04:58] VITALS: BP 152/68
[2017-12-18] MEDS: IPRATRPIUM/ALBUTEROL 0.5/2.5MG 3 ML NEBU. NEB SCH ×3 (05:40→21:42)
[2017-12-18] MEDS: guaiFENesin DM 600/30MG 1 TAB TAB.ER.12H PO SCH ×2 (08:28→20:09)
[2017-12-18] MEDS: LISINOPRIL 20 MG TABLET PO SCH (08:28)
[2017-12-18] MEDS: amLODIPine BESYLATE 10 MG TABLET PO SCH (08:29)
[2017-12-18] MEDS: methylPREDNISolone SOD SUCC PF 40 MG/ML VIAL. IV SCH (08:29)
[2017-12-18] MEDS: FUROSEMIDE 20 MG TABLET PO SCH (08:29)
[2017-12-18] MEDS: FERROUS SULFATE 325 MG TABLET. PO SCH (08:29)
[2017-12-18] MEDS: POLYETHYLENE GLYCOL 3350 17 GM PACKET. PO PRN (08:29)
[2017-12-18] MEDS: LACTOBACILLUS RHAMNOSUS GG 1 CAPSULE. PO SCH ×2 (08:29→20:09)
[2017-12-18] MEDS: KETOTIFEN FUMARATE 0.025% OPHT SOLUTION BOTTLE. OU SCH ×2 (08:30→20:09)
[2017-12-18] MEDS: CARVEDILOL 12.5 MG TABLET PO SCH ×2 (08:30→17:10)
[2017-12-18] MEDS: SODIUM CHLORIDE 0.65% NASAL SPRAY 45ML BOTTLE. NS SCH ×4 (08:30→20:09)
[2017-12-18] MEDS: FLUTICASONE 50MCG/NASAL SPRAY 16GM BOTTLE. NS SCH (08:30)
[2017-12-18] MEDS: INSULIN ASPART 300 UNITS/3 ML INSULN.PEN SQ SCH ×4 (08:31→20:15)
[2017-12-18] MEDS: ENOXAPARIN 30 MG/0.3 ML DISP.SYRIN. SQ SCH (16:52)
[2017-12-18 18:13] VITALS: BP 133/62
[2017-12-18 19:17] VITALS: BP 139/71
[2017-12-18] MEDS: levoFLOXacin 250 MG TABLET PO SCH (20:09)
[2017-12-18] MEDS: ATORVASTATIN CALCIUM 20 MG TABLET PO SCH (20:09)
[2017-12-18] MEDS: INSULIN DETEMIR 300 UNITS/3 ML INSULN.PEN. SQ SCH (20:15)
[2017-12-19] MEDS: IPRATRPIUM/ALBUTEROL 0.5/2.5MG 3 ML NEBU. NEB SCH ×3 (05:42→21:44)
[2017-12-19 06:12] VITALS: BP 130/71
[2017-12-19] MEDS: INSULIN ASPART 300 UNITS/3 ML INSULN.PEN SQ SCH ×4 (07:30→20:23)
[2017-12-19] MEDS: FUROSEMIDE 20 MG TABLET PO SCH (08:29)
[2017-12-19] MEDS: FERROUS SULFATE 325 MG TABLET. PO SCH (08:29)
[2017-12-19] MEDS: LISINOPRIL 20 MG TABLET PO SCH (08:29)
[2017-12-19] MEDS: LACTOBACILLUS RHAMNOSUS GG 1 CAPSULE. PO SCH ×2 (08:29→20:10)
[2017-12-19] MEDS: guaiFENesin DM 600/30MG 1 TAB TAB.ER.12H PO SCH ×2 (08:30→20:10)
[2017-12-19] MEDS: amLODIPine BESYLATE 10 MG TABLET PO SCH (08:30)
[2017-12-19] MEDS: CARVEDILOL 12.5 MG TABLET PO SCH ×2 (08:30→17:24)
[2017-12-19] MEDS: FLUTICASONE 50MCG/NASAL SPRAY 16GM BOTTLE. NS SCH (08:31)
[2017-12-19] MEDS: SODIUM CHLORIDE 0.65% NASAL SPRAY 45ML BOTTLE. NS SCH ×4 (08:31→20:27)
[2017-12-19] MEDS: KETOTIFEN FUMARATE 0.025% OPHT SOLUTION BOTTLE. OU SCH ×2 (08:31→20:27)
[2017-12-19] MEDS: predniSONE 20 MG TABLET PO SCH (08:32)
[2017-12-19 19:29] VITALS: BP 141/86
[2017-12-19] MEDS: ATORVASTATIN CALCIUM 20 MG TABLET PO SCH (20:10)
[2017-12-19] MEDS: levoFLOXacin 250 MG TABLET PO SCH (20:10)
[2017-12-19] MEDS: INSULIN DETEMIR 300 UNITS/3 ML INSULN.PEN. SQ SCH (20:22)
[2017-12-19] MEDS: HYDROcodone/CHLORPHEN POLIS 5 ML SUS.ER.12H PO PRN (20:24)
[2017-12-20] MEDS: IPRATRPIUM/ALBUTEROL 0.5/2.5MG 3 ML NEBU. NEB SCH ×3 (06:12→22:22)
[2017-12-20 06:35] VITALS: BP 166/90
[2017-12-20] MEDS: guaiFENesin DM 600/30MG 1 TAB TAB.ER.12H PO SCH ×2 (08:26→21:38)
[2017-12-20] MEDS: LISINOPRIL 20 MG TABLET PO SCH (08:27)
[2017-12-20] MEDS: CARVEDILOL 12.5 MG TABLET PO SCH ×2 (08:27→18:47)
[2017-12-20] MEDS: FERROUS SULFATE 325 MG TABLET. PO SCH (08:27)
[2017-12-20] MEDS: predniSONE 20 MG TABLET PO SCH (08:27)
[2017-12-20] MEDS: LACTOBACILLUS RHAMNOSUS GG 1 CAPSULE. PO SCH ×2 (08:28→21:38)
[2017-12-20] MEDS: amLODIPine BESYLATE 10 MG TABLET PO SCH (08:28)
[2017-12-20] MEDS: FUROSEMIDE 20 MG TABLET PO SCH (08:28)
[2017-12-20] MEDS: INSULIN ASPART 300 UNITS/3 ML INSULN.PEN SQ SCH ×4 (09:39→21:44)
[2017-12-20] MEDS: FLUTICASONE 50MCG/NASAL SPRAY 16GM BOTTLE. NS SCH (12:15)
[2017-12-20] MEDS: KETOTIFEN FUMARATE 0.025% OPHT SOLUTION BOTTLE. OU SCH ×2 (12:15→21:41)
[2017-12-20] MEDS: SODIUM CHLORIDE 0.65% NASAL SPRAY 45ML BOTTLE. NS SCH ×4 (12:15→21:41)
[2017-12-20 19:32] VITALS: BP 159/83
[2017-12-20] MEDS: levoFLOXacin 250 MG TABLET PO SCH (21:38)
[2017-12-20] MEDS: ATORVASTATIN CALCIUM 20 MG TABLET PO SCH (21:38)
[2017-12-20] MEDS: INSULIN DETEMIR 300 UNITS/3 ML INSULN.PEN. SQ SCH (21:43)
[2017-12-21] MEDS: IPRATRPIUM/ALBUTEROL 0.5/2.5MG 3 ML NEBU. NEB SCH ×3 (06:18→21:26)
[2017-12-21 07:56] VITALS: BP 152/72
[2017-12-21] MEDS: CARVEDILOL 12.5 MG TABLET PO SCH ×2 (08:00→17:25)
[2017-12-21] MEDS: LACTOBACILLUS RHAMNOSUS GG 1 CAPSULE. PO SCH ×2 (09:00→20:26)
[2017-12-21] MEDS: guaiFENesin DM 600/30MG 1 TAB TAB.ER.12H PO SCH ×2 (09:00→20:26)
[2017-12-21] MEDS: FLUTICASONE 50MCG/NASAL SPRAY 16GM BOTTLE. NS SCH (09:00)
[2017-12-21] MEDS: SODIUM CHLORIDE 0.65% NASAL SPRAY 45ML BOTTLE. NS SCH ×4 (09:00→20:28)
[2017-12-21] MEDS: KETOTIFEN FUMARATE 0.025% OPHT SOLUTION BOTTLE. OU SCH ×2 (09:00→20:28)
[2017-12-21] MEDS: LISINOPRIL 20 MG TABLET PO SCH (09:00)
[2017-12-21] MEDS: FERROUS SULFATE 325 MG TABLET. PO SCH (09:00)
[2017-12-21] MEDS: FUROSEMIDE 20 MG TABLET PO SCH (09:00)
[2017-12-21] MEDS: amLODIPine BESYLATE 10 MG TABLET PO SCH (09:00)
[2017-12-21] MEDS: predniSONE 20 MG TABLET PO SCH (09:00)
[2017-12-21] MEDS: INSULIN ASPART 300 UNITS/3 ML INSULN.PEN SQ SCH ×4 (12:13→21:09)
[2017-12-21 19:04] VITALS: BP 120/64
[2017-12-21] MEDS: ATORVASTATIN CALCIUM 20 MG TABLET PO SCH (20:26)
[2017-12-21] MEDS: levoFLOXacin 250 MG TABLET PO SCH (20:26)
[2017-12-21] MEDS: INSULIN DETEMIR 300 UNITS/3 ML INSULN.PEN. SQ SCH (21:08)
[2017-12-22] MEDS: HYDROcodone/CHLORPHEN POLIS 5 ML SUS.ER.12H PO PRN (04:27)
[2017-12-22] MEDS: IPRATRPIUM/ALBUTEROL 0.5/2.5MG 3 ML NEBU. NEB SCH ×3 (06:29→21:41)
[2017-12-22 08:00] VITALS: BP 145/75
[2017-12-22] MEDS: guaiFENesin DM 600/30MG 1 TAB TAB.ER.12H PO SCH ×2 (08:23→21:03)
[2017-12-22] MEDS: FERROUS SULFATE 325 MG TABLET. PO SCH (08:24)
[2017-12-22] MEDS: LACTOBACILLUS RHAMNOSUS GG 1 CAPSULE. PO SCH ×2 (08:24→21:03)
[2017-12-22] MEDS: FUROSEMIDE 20 MG TABLET PO SCH (08:24)
[2017-12-22] MEDS: amLODIPine BESYLATE 10 MG TABLET PO SCH (08:29)
[2017-12-22] MEDS: CARVEDILOL 12.5 MG TABLET PO SCH ×2 (08:30→17:15)
[2017-12-22] MEDS: LISINOPRIL 20 MG TABLET PO SCH (08:31)
[2017-12-22] MEDS: predniSONE 20 MG TABLET PO SCH (08:40)
[2017-12-22] MEDS: FLUTICASONE 50MCG/NASAL SPRAY 16GM BOTTLE. NS SCH (08:45)
[2017-12-22] MEDS: SODIUM CHLORIDE 0.65% NASAL SPRAY 45ML BOTTLE. NS SCH ×4 (08:45→21:03)
[2017-12-22] MEDS: KETOTIFEN FUMARATE 0.025% OPHT SOLUTION BOTTLE. OU SCH ×2 (08:45→21:03)
[2017-12-22] MEDS: INSULIN ASPART 300 UNITS/3 ML INSULN.PEN SQ SCH ×4 (08:46→21:06)
[2017-12-22] MEDS ORDERED: INSULIN ASPART 300 UNITS/3 ML INSULN.PEN SQ ONE ×2 (16:45→21:15)
[2017-12-22 20:27] VITALS: BP 135/67
[2017-12-22] MEDS: ATORVASTATIN CALCIUM 20 MG TABLET PO SCH (21:03)
[2017-12-22] MEDS: INSULIN DETEMIR 300 UNITS/3 ML INSULN.PEN. SQ SCH (21:10)
[2017-12-23] MEDS: HYDROcodone/CHLORPHEN POLIS 5 ML SUS.ER.12H PO PRN (01:51)
[2017-12-23] MEDS: INSULIN ASPART 300 UNITS/3 ML INSULN.PEN SQ SCH (07:30)
[2017-12-23] MEDS ORDERED: IPRA3AMP NEB (08:37)
[2017-12-23] MEDS ORDERED: PRED20TA PO (08:37)
[2017-12-23] MEDS: FUROSEMIDE 20 MG TABLET PO SCH (08:52)
[2017-12-23] MEDS: guaiFENesin DM 600/30MG 1 TAB TAB.ER.12H PO SCH (08:52)
[2017-12-23] MEDS: CARVEDILOL 12.5 MG TABLET PO SCH (08:54)
[2017-12-23] MEDS: predniSONE 20 MG TABLET PO SCH (08:55)
[2017-12-23] MEDS: LACTOBACILLUS RHAMNOSUS GG 1 CAPSULE. PO SCH (08:55)
[2017-12-23] MEDS: amLODIPine BESYLATE 10 MG TABLET PO SCH (08:55)
[2017-12-23 08:56] VITALS: BP 123/66
[2017-12-23] MEDS: KETOTIFEN FUMARATE 0.025% OPHT SOLUTION BOTTLE. OU SCH (08:56)
[2017-12-23] MEDS: FERROUS SULFATE 325 MG TABLET. PO SCH (08:56)
[2017-12-23] MEDS: LISINOPRIL 20 MG TABLET PO SCH (08:56)
[2017-12-23] MEDS: SODIUM CHLORIDE 0.65% NASAL SPRAY 45ML BOTTLE. NS SCH (08:57)
[2017-12-23] MEDS: FLUTICASONE 50MCG/NASAL SPRAY 16GM BOTTLE. NS SCH (09:01)
[2017-12-23] MEDS: IPRATRPIUM/ALBUTEROL 0.5/2.5MG 3 ML NEBU. NEB SCH (11:00)
== END 2017-12-23 11:30 | disposition home health service (06) | DRG 872 ==
LOC: 1 SOUTH 13:10 → LND 18:07
PROVIDERS: ADMIT Internal Medicine; ATTEND Family Medicine
DX: A41.9 Sepsis, unspecified organism (principal); D63.8 Anemia in other chronic diseases classified elsewhere; N39.0 Urinary tract infection, site not specified; J98.01 Acute bronchospasm; R70.0 Elevated erythrocyte sedimentation rate; R73.9 Hyperglycemia, unspecified; Z66 Do not resuscitate
CPT/HCPCS: 36415; 80202; 82947; 94640; J1650; J1815; J2920; J3370; J7050; J7512; J7620; 97110; 97112; 97530; 97535

== ENCOUNTER 2018-01-01 14:27 | Inpatient (IN) | payer MEDICARE ==
[2018-01-01] VITALS (8 sets, daily range): BP systolic 95–109; BP diastolic 48–57
[~2018-01-01] VITALS: Ht 160 cm; Wt 62.1 kg
[~2018-01-01 14:27] MED LIST changes: -FERR-26 PO; +FERR325T14 PO; +FURO20TA3 PO; +IPRA3AMP NEB; +KETO5DRO4 EACHEYE; +PRED20TA PO; +VANC1PLA17 IV
--- NOTE | 2018-01-01 14:58 | EKG ---
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 LOW LIMB LEAD VOLTAGE QRS(T) CONTOUR ABNORMALITY CONSISTENT WITH ANTEROSEPTAL INFARCT PROBABLY OLD ABNORMAL ECG RI6.01 Electronically Signed On 01-07-2018 9:27:24 DERMATOLOGY NURSE by Jean Marie Cardoza
[2018-01-01] MEDS ORDERED: IV NORMAL SALINE 50ML 50 ML ONE (14:59)
[2018-01-01] MEDS ORDERED: DIGOXIN IV 500 MCG/2 ML AMPUL. IV ONE (15:00)
[2018-01-01 15:12] LABS: BASO % 1 % (0-3); EOS # 0.1 x10^3/uL (0.0-0.7); EOS % 2 % (0-3); HEMATOCRIT 33.3 % (36.0-47.0); LYMPH # 1.8 x10^3/uL (1.0-4.8); LYMPH % 37 % (24-48); MEAN CORPUSCULAR HEMOGLOBIN 28 pg (25-35); MEAN CORPUSCULAR HGB CONC 33 g/dL (31-37); MEAN CORPUSCULAR VOLUME 84 fL (79-100); MONO # 0.4 x10^3/uL (0.0-1.1); MONO % 9 % (0-9); NEUT # 2.5 x10^3uL (1.8-7.7); NEUT % 51 % (31-73); PLATELET COUNT 126 x10^3/uL (140-400); RED BLOOD COUNT 3.98 x10^6/uL (3.50-5.40); RED CELL DISTRIBUTION WIDTH 14.2 % (11.5-14.5); WHITE BLOOD COUNT 4.9 x10^3/uL (4.0-11.0)
[2018-01-01 15:34] LABS: CALCIUM 8.9 mg/dL (8.5-10.1); GFR 63.9; POTASSIUM 3.1 mmol/L (3.5-5.1)
--- NOTE | 2018-01-01 16:00 | PHYS DOC ---
Past History Past Medical History: Diabetes, High Cholesterol, Hypertension Past Surgical History: No Surgical History Alcohol Use: None Drug Use: None Adult General Chief Complaint Chief Complaint: HYPOTENSION HPI HPI Patient is a 82 year old F who presents with mild shortness of breath, and weakness. Her home health nurse noted that she had low blood pressure which is what instigated her being seen in the emergency room. She was recently admitted the hospital and has been on steroids recently. She has no history of heart failure or arrhythmias. She has no other associated symptoms. Her shortness of breath is exacerbated by lying flat and with activity Review of Systems Review of Systems Constitutional: Denies fever or chills [] Eyes: Denies change in visual acuity, redness, or eye pain [] HENT: Denies nasal congestion or sore throat [] Respiratory: Negative except history of present illness Cardiovascular: No additional information not addressed in HPI [] GI: Denies abdominal pain, nausea, vomiting, bloody stools or diarrhea [] : Denies dysuria or hematuria [] Musculoskeletal: Denies back pain or joint pain [] Integument: Denies rash or skin lesions [] Neurologic: Denies headache, focal weakness or sensory changes [] Endocrine: Denies polyuria or polydipsia [] All other systems were reviewed and found to be within normal limits, except as documented in this note. Family History Family History No pertinent medical she was reported Current Medications Current Medications Current Medications Medications (Trade) Dose Ordered Sig/Chris Start Time Stop Time Status Last Admin Dose Admin Digoxin (Lanoxin) 500 mcg 1X ONCE 01/01/18 15:00 01/01/18 15:01 DC 01/01/18 15:13 500 MCG Sodium Chloride 50 ml @ As Directed STK-MED ONCE 01/01/18 14:59 01/01/18 15:00 DC Allergies Allergies Allergies Coded Allergies Type Severity Reaction Last Updated Verified No Known Drug Allergies 03/18/16 No Physical Exam Physical Exam Constitutional: Well developed, well nourished, no acute distress, non-toxic appearance. [] HENT: Normocephalic, atraumatic, Eyes:EOMI, conjunctiva normal, no discharge. [] Neck: Normal range of motion, no tenderness, supple, no stridor. [] Cardiovascular: Irregularly irregular and tachycardia Lungs & Thorax: Crackles bilaterally Abdomen: Bowel sounds normal, soft, no tenderness, no masses, no pulsatile masses. [] Skin: Warm, dry, no erythema, no rash.[] Extremities: No tenderness, no cyanosis, no clubbing, ROM intact, no edema. [] Neurologic: Alert and oriented X 3, normal motor function, normal sensory function, no focal deficits noted. [] Psychologic: Affect normal, judgement normal, mood normal. [] Current Patient Data Vital Signs Vital Signs Date Time Temp Pulse Resp B/P (MAP) Pulse Ox O2 Delivery O2 Flow Rate FiO2 01/01/18 15:13 125 134/67 01/01/18 14:35 98.0 18 100 Room Air Lab Results Laboratory Tests Test 01/01/18 14:57 White Blood Count 4.9 x10^3/uL (4.0-11.0) Red Blood Count 3.98 x10^6/uL (3.50-5.40) Hemoglobin 11.0 g/dL (12.0-15.5) L Hematocrit 33.3 % (36.0-47.0) L Mean Corpuscular Volume 84 fL (79-100) Mean Corpuscular Hemoglobin 28 pg (25-35) Mean Corpuscular Hemoglobin Concent 33 g/dL (31-37) Red Cell Distribution Width 14.2 % (11.5-14.5) Platelet Count 126 x10^3/uL (140-400) L Neutrophils (%) (Auto) 51 % (31-73) Lymphocytes (%) (Auto) 37 % (24-48) Monocytes (%) (Auto) 9 % (0-9) Eosinophils (%) (Auto) 2 % (0-3) Basophils (%) (Auto) 1 % (0-3) Neutrophils # (Auto) 2.5 x10^3uL (1.8-7.7) Lymphocytes # (Auto) 1.8 x10^3/uL (1.0-4.8) Monocytes # (Auto) 0.4 x10^3/uL (0.0-1.1) Eosinophils # (Auto) 0.1 x10^3/uL (0.0-0.7) Basophils # (Auto) 0.0 x10^3/uL (0.0-0.2) Sodium Level 141 mmol/L (136-145) Potassium Level 3.1 mmol/L (3.5-5.1) L Chloride Level 97 mmol/L (98-107) L Carbon Dioxide Level 43 mmol/L (21-32) H Anion Gap 1 (6-14) L Blood Urea Nitrogen 16 mg/dL (7-20) Creatinine 1.0 mg/dL (0.6-1.0) Estimated GFR (Cockcroft-Gault) 63.9 Glucose Level 137 mg/dL (70-99) H Calcium Level 8.9 mg/dL (8.5-10.1) Creatine Kinase 67 U/L (26-192) Creatine Kinase MB (Mass) 1.2 ng/mL (0.0-3.6) Creatine Kinase MB Relative Index 1.8 % (0-4) Troponin I Quantitative 0.045 ng/mL (0-0.055) EKG EKG Irregularly irregular, multifocal atrial tachycardia versus A. fib Radiology/Procedures Radiology/Procedures [] Course & Med Decision Making Course & Med Decision Making Pertinent Labs and Imaging studies reviewed. (See chart for details) Cardiology was consulted by phone. Her case was reviewed. Digoxin loading dose was recommended this on her blood pressure and heart rate. She was given digoxin 0.5 g IV. Dragon Disclaimer Dragon Disclaimer This electronic medical record was generated, in whole or in part, using a voice recognition dictation system. Departure Departure: Impression: Primary Impression: Multifocal atrial tachycardia Additional Impressions: Hypokalemia Acute systolic CHF (congestive heart failure) Disposition: ADMITTED INPATIENT Admitting Physician: Carmelo Escalante Condition: STABLE Referrals: CARMELO ESCALANTE MD (PCP) Problem Qualifiers CARMELO ORR MD Jan 01, 2018 16:00
--- NOTE | 2018-01-01 16:15 | RAD ---
EXAM: Chest 2 views. HISTORY: Shortness of breath, cough. COMPARISON: 12/13/2017. FINDINGS: Frontal and lateral views of the chest are obtained. Hyperinflation is consistent with chronic obstructive pulmonary disease. There are no confluent infiltrates. Blunting of the right costophrenic angle is consistent with a small pleural effusion or scarring. There are atherosclerotic calcifications of the aorta. There is no pneumothorax. The heart is not enlarged. IMPRESSION: 1. Chronic obstructive pulmonary disease. Small right pleural effusion. No confluent infiltrates.
[2018-01-01] MEDS ORDERED: ENOXAPARIN 40 MG/0.4 ML DISP.SYRIN. SQ SCH ×2 (17:30→21:00)
[2018-01-01] MEDS ORDERED: SODIUM CHLORIDE 0.65% NASAL SPRAY 45ML BOTTLE. NS PRN (18:15)
[2018-01-01] MEDS ORDERED: DEXTROSE 50% 25 GM / 50ML DISP.SYRIN. IV PRN (18:15)
[2018-01-01] MEDS ORDERED: POTASSIUM CHLORIDE 20 MEQ TABLET.ER. PO ONE ×2 (19:30→22:00)
[2018-01-01] MEDS: KETOTIFEN FUMARATE 0.025% OPHT SOLUTION BOTTLE. OU SCH (20:37)
[2018-01-01] MEDS: ATORVASTATIN CALCIUM 20 MG TABLET PO SCH (20:37)
[2018-01-01] MEDS: CARVEDILOL 12.5 MG TABLET PO SCH (20:39)
[2018-01-01] MEDS: INSULIN DETEMIR 300 UNITS/3 ML INSULN.PEN. SQ SCH (20:41)
[2018-01-01] MEDS: INSULIN ASPART 300 UNITS/3 ML INSULN.PEN SQ SCH (20:42)
[2018-01-01] MEDS ORDERED: OLOPATADINE HCL EACHEYE SCH (21:00)
[2018-01-01] MEDS ORDERED: NON FORMULARY ITEM (Albuterol Sulfate (Albuterol Sulfate Neb Soln) 1 VIAL) NEB PRN (22:15)
[2018-01-01] MEDS ORDERED: ALBUTEROL SULFATE 2.5 MG/3 ML NEBU. NEB PRN (22:45)
[2018-01-01] MEDS: IPRATRPIUM/ALBUTEROL 0.5/2.5MG 3 ML NEBU. NEB SCH (22:49)
[2018-01-02] VITALS (21 sets, daily range): BP systolic 94–208; BP diastolic 49–101
[2018-01-02] MEDS: IPRATRPIUM/ALBUTEROL 0.5/2.5MG 3 ML NEBU. NEB SCH ×3 (05:58→20:51)
[2018-01-02 07:04] LABS: BASO % 0 % (0-3); EOS # 0.1 x10^3/uL (0.0-0.7); EOS % 2 % (0-3); HEMATOCRIT 30.2 % (36.0-47.0); LYMPH # 1.6 x10^3/uL (1.0-4.8); LYMPH % 35 % (24-48); MEAN CORPUSCULAR HEMOGLOBIN 28 pg (25-35); MEAN CORPUSCULAR HGB CONC 33 g/dL (31-37); MEAN CORPUSCULAR VOLUME 86 fL (79-100); MONO # 0.4 x10^3/uL (0.0-1.1); MONO % 9 % (0-9); NEUT # 2.5 x10^3uL (1.8-7.7); NEUT % 54 % (31-73); PLATELET COUNT 109 x10^3/uL (140-400); RED BLOOD COUNT 3.53 x10^6/uL (3.50-5.40); RED CELL DISTRIBUTION WIDTH 13.9 % (11.5-14.5); WHITE BLOOD COUNT 4.7 x10^3/uL (4.0-11.0)
[2018-01-02 07:20] LABS: ALBUMIN 2.3 g/dL (3.4-5.0); ALBUMIN/GLOBULIN RATIO 0.6 (1.0-1.7); CALCIUM 8.4 mg/dL (8.5-10.1); CREATININE 0.8 mg/dL (0.6-1.0); GFR 82.7; POTASSIUM 3.9 mmol/L (3.5-5.1); TOTAL BILIRUBIN 0.4 mg/dL (0.2-1.0); TOTAL PROTEIN 5.9 g/dL (6.4-8.2)
[2018-01-02] MEDS: INSULIN ASPART 300 UNITS/3 ML INSULN.PEN SQ SCH ×6 (07:30→20:43)
--- NOTE | 2018-01-02 08:04 | CARD ---
MR#: [id number] Date of Study: 01/01/2018 Ordering Physician: BRANDT YUSUF, Referring Physician: CAMACHO DUNHAM, Tech: DEJUAN Soria APPROVED REPORT EXAM: Two-dimensional and M-mode echocardiogram with Doppler and color Doppler. Other Information Quality : Good INDICATION Atrial Fibrillation 2D DIMENSIONS Left Atrium(2D)3.4 (1.6-4.0cm)IVSd1.6 (0.7-1.1cm) Aortic Root(2D)2.3 (2.0-3.7cm)LVDd3.8 (3.9-5.9cm) LVOT Diameter2.0 (1.8-2.4cm)PWd1.4 (0.7-1.1cm) LVDs1.8 (2.5-4.0cm)FS (%) 51.7 % SV51.9 mlLVEF(%)83.5 (>50%) Aortic Valve AoV Peak Hussein.134.4cm/Gladys Peak GR.7.2mmHg LVOT Peak Hussein.101.3cm/sAVA (VMAX)2.31cm2 Tricuspid Valve TR P. [id number]/sRAP [id number] TR Peak Gr.[id number] LEFT VENTRICLE The left ventricle is normal size. There is moderate concentric left ventricular hypertrophy. The lef t ventricle is normal. The Ejection Fraction is 70%. There is normal LV segmental wall motion. RIGHT VENTRICLE The right ventricle is normal size. The right ventricle is mildly hypertrophied. The right ventricula r systolic function is normal. There is mild to moderate pulmonary hypertension. PAP is 45 mmHg. ATRIA The left atrium is moderately dilated. The right atrium is moderately dilated. The interatrial septum is intact with no evidence for an atrial septal defect or patent foramen ovale as noted on 2-D or Do ppler imaging. AORTIC VALVE The aortic valve is trileaflet. The aortic valve is moderately sclerotic. Doppler and Color Flow reve aled trace aortic regurgitation. There is no significant aortic valvular stenosis. MITRAL VALVE Mitral annular calcification is mild. The mitral valve leaflets are calcified. There is no evidence o f mitral valve prolapse. There is no mitral valve stenosis. Doppler and Color-flow revealed trace ofelia ral regurgitation. TRICUSPID VALVE Doppler and Color Flow revealed moderate tricuspid regurgitation. There is no tricuspid valve stenosi s. PULMONIC VALVE The pulmonary valve is normal in structure and function. Doppler and Color Flow revealed trace pulmon ic valvular regurgitation. GREAT VESSELS The aortic root is normal in size. The IVC is dilated but collapses with inspiration. PERICARDIAL EFFUSION There is no evidence of significant pericardial effusion. Critical Notification Critical Value: No <Conclusion> The left ventricle is normal. The Ejection Fraction is 70%. There is normal LV segmental wall motion. There is moderate concentric left ventricular hypertrophy. The left atrium is moderately dilated. Trace mitral regurgitation. Moderate tricuspid regurgitation. There is no evidence of significant pericardial effusion. Signed by : Nabil Major, Electronically Approved : 01/02/2018 08:03:53
[2018-01-02] MEDS: FERROUS SULFATE 325 MG TABLET. PO SCH (08:27)
[2018-01-02] MEDS: FUROSEMIDE 20 MG TABLET PO SCH ×2 (08:27→09:00)
[2018-01-02] MEDS: predniSONE 10 MG TABLET PO SCH (08:27)
[2018-01-02] MEDS: metFORMIN 500 MG TABLET PO SCH ×2 (08:27→18:31)
[2018-01-02] MEDS: FLUTICASONE 50MCG/NASAL SPRAY 16GM BOTTLE. NS SCH (08:28)
[2018-01-02] MEDS: KETOTIFEN FUMARATE 0.025% OPHT SOLUTION BOTTLE. OU SCH ×2 (08:28→20:43)
[2018-01-02] MEDS: CARVEDILOL 12.5 MG TABLET PO SCH (08:34)
[2018-01-02] MEDS ORDERED: LISINOPRIL 20 MG TABLET PO SCH (09:00)
[2018-01-02] MEDS ORDERED: hydroCHLOROthiazide 25 MG TABLET PO SCH (09:00)
[2018-01-02] MEDS ORDERED: amLODIPine BESYLATE 10 MG TABLET PO SCH (09:00)
[2018-01-02] MEDS ORDERED: METOPROLOL TART IMMED RELEASE 25 MG TABLET PO SCH (10:00)
--- NOTE | 2018-01-02 10:02 | PDOC2 ---
CONSULT The patient has been seen and examined and the full consult has been dictated.~ I have summarized the most important points for review while the note is being transcribed.~ Please see the dictation for complete details. Summary: Atrial fibrillation, new onset: This is likely secondary to chest infection with underlying risk factors including age and hypertension. Her rates are under control on a small dose of Cardizem. I will start p.o. metoprolol. We will also start on Eliquis and DC the at Lovenox. if she persistent atrial fibrillation in a couple of weeks time we will do a outpatient cardioversion Relative hypotension: We will hold antihypertensives including carvedilol amlodipine hydrochlorothiazide and furosemide. As a blood pressure comes up these can be re-initiated. Edema: Resolved. Electrolyte abnormalities: Hypokalemia and hypomagnesemia. These will be corrected Problems: AUBREY BRONSON MD Jan 02, 2018 10:02
[2018-01-02] MEDS ORDERED: MAGNESIUM SULFATE 2GM 50 ML IV ONE (10:15)
[2018-01-02] MEDS: APIXABAN 5 MG TABLET. PO SCH ×2 (10:26→20:43)
--- NOTE | 2018-01-02 10:35 | CONS ---
DATE OF CONSULTATION: 01/02/2018 CARDIOLOGY CONSULTATION REQUESTING PHYSICIAN: Dr. Carmelo Escalante. REASON FOR CONSULTATION: Atrial fibrillation and hypotension. HISTORY OF PRESENT ILLNESS: This is an 82-year-old -[place] female well known to me with a history of hypertension, hypercholesterolemia, aortic valve sclerosis, asthma, and chronic edema of her legs and intermittent sinus tachycardia, who was in the hospital in the last week of November with sepsis and hypotension from the urinary tract infection. She then went to a swing bed, the visiting nurse saw her yesterday and noted that her heart rate was high and her blood pressure was low and she was brought to the Emergency Room. On arrival to the Emergency Room, her blood pressure appeared to be reasonable with lowest of 134/67 which subsequently dropped to 95/57 (? off the Cardizem), she was found to be tachycardic with a heart rate of 130s. An EKG confirmed atrial fibrillation. The patient has a cough and mild shortness of breath, but was not aware of any palpitations. She denies any chest pain. REVIEW OF SYSTEMS: She denies any fever. She does have a cough. She denies any palpitations. SOCIAL HISTORY: The patient lives with her son and daughter. She does not smoke or drink alcohol. She is able to ambulate. She denies any falls. PAST MEDICAL HISTORY: She has a history of hypertension, with moderate LVH, aortic valve sclerosis, mild ascending aortic ectasia, normal pulmonary artery pressures. She had a negative stress myocardial perfusion scan in 07/2017. She has a history of edema likely related to amlodipine. FAMILY HISTORY: There is no family history of premature coronary artery disease. Her mother; however, at age 32 of unknown reason. MEDICATIONS PRIOR TO ADMISSION: Albuterol nebulizers, amlodipine 10 mg, aspirin 81 mg, atorvastatin 80, carvedilol 12.5 b.i.d., hydrochlorothiazide 25, lisinopril and metformin. ALLERGIES: No known drug allergies. PHYSICAL EXAMINATION: GENERAL: The patient appears stable and comfortable lying supine. VITAL SIGNS: Pulse rate is 64, irregularly irregular, blood pressure 123/73. HEENT: Pupils are equal and reactive. Extraocular movements are normal. Sclerae clear. Mucous membranes are moist. NECK: Jugular venous pressure is not elevated, but is not flat either. There are no carotid bruits. HEART: Revealed normal first and second heart sounds with a normal heart rate, but irregularly irregular rhythm. There is a 2/6 systolic murmur. No diastolic murmurs. CHEST: Revealed bilateral expiratory rhonchi diffusely heard. There are no crackles. Chest expansion was normal. ABDOMEN: Soft, without any palpable mass or pulsations. No bruits. EXTREMITIES: Reveal no edema. Distal pulses are well felt. No cyanosis or clubbing. NEUROLOGIC: There are no tremors. There is no facial asymmetry. SKIN: There are no skin rashes. INVESTIGATIONS: Potassium was 3.1. BUN is 16, creatinine 1.0. Albumin is 2.9. Troponin 0.05. Magnesium is 1.0. Hemoglobin is 10.0, hematocrit of 30.2. EKG shows atrial fibrillation with rapid ventricular rate with a heart rate of 138 beats per minute. Chest x-ray showed COPD with a small right pleural effusion without any infiltrates. I did review the EKG from 01/01/2018. IMPRESSION: 1. Atrial fibrillation: New onset. For now, I will start the patient on metoprolol. The patient has multiple electrolyte abnormalities including hypokalemia and hypomagnesemia. Her potassium has improved to 3.9. We will correct the magnesium. Albumin is low. We shall start her on oral anticoagulation in view of her high CHADS-VASc score, which is 4.0. I would recommend using Eliquis in the short-term. 2. Essential hypertension: The patient is currently normotensive on a low dose of Cardizem. We shall replace this with the beta stefan. I suspect that this will come up. She does have moderate LVH. 3. Anemia: Mild. 4. Hypercholesterolemia. She was on a statin which can be continued. 5. Electrolyte abnormalities: She had hypokalemia, which is improved. She has a magnesium of 1.0 and this will be corrected. 6. Edema: Resolved. 7. Chest infection: She has expiratory rhonchi and has cough and likely has bronchitis. 8. Hypoalbuminemia: She does have a low albumin, likely related to her recent illness. Thank you very much for the consult. AUBREY BRONSON MD DR: ANDREW/preethi JOB#: [id number] / [id number]
[2018-01-02] MEDS ORDERED: METOPROLOL TARTRATE 5 MG/5 ML VIAL. IV ONE ×2 (17:45→22:38)
[2018-01-02] MEDS: INSULIN DETEMIR 300 UNITS/3 ML INSULN.PEN. SQ SCH (20:43)
[2018-01-02] MEDS: ATORVASTATIN CALCIUM 20 MG TABLET PO SCH (20:43)
[2018-01-02] MEDS: METOPROLOL TART IMMED RELEASE 50 MG TABLET PO SCH (20:43)
--- NOTE | 2018-01-02 22:01 | HP ---
ADMIT DATE: 01/01/2018 HISTORY OF PRESENT ILLNESS: An 82-year-old -[place] female came in through the Emergency Room. The patient apparently seen by Dr. Rodriguez. The patient had been seen and examined. The patient came in through the Emergency Room with shortness of breath and weakness. She had multifocal PVCs. As a result of this, the patient was admitted for her cardiac arrhythmias, and also hypotension. The patient denied chest pain per se. PHYSICAL EXAMINATION: VITAL SIGNS: Blood pressure 140/60, respiratory rate 18; however, her pulse was up as high as 125, afebrile. HEENT: The patient's head was atraumatic, normocephalic. Eyes: PERRLA without jaundice. The mouth and throat were normal. LUNGS: Diminished throughout, poor movement of air. CARDIOVASCULAR: Regular with occasional dropped beats. CVR exam otherwise unremarkable. ABDOMEN: Soft, nontender. EXTREMITIES: No clubbing, cyanosis or edema. PAST MEDICAL HISTORY: Hypertension, hypotension, type 2 diabetes, history of cancer. Vaccinations of influenza and pneumococcal up-to-date. ALLERGIES: The patient has no known allergies. HOME MEDICATIONS: Include that of albuterol, Norvasc 10, Lipitor 80, carvedilol one tablet b.i.d., ferrous sulfate, Flonase nasal saline spray, furosemide, hydrochlorothiazide 25 mg, Levemir 15 units at bedtime, Humalog 150 units subcutaneous t.i.d., which is hard to believe, DuoNeb treatments 3 times a day, Zaditor for the eyes, lisinopril 20, metformin 500 mg 2 tablets b.i.d., timolol eyedrops, prednisone 20 mg a day, and nasal saline. FAMILY HISTORY: Unremarkable. SOCIAL HISTORY: Denies smoking, alcohol or drug use. The patient is a DNR. REVIEW OF SYSTEMS: The patient outside of her shortness of breath and generalized weakness, feeling faint. Other than that, has been feeling reasonably well. In any case, the patient was admitted for further evaluation of her multifocal PAC, sinus tachycardia, and will be monitored by Cardiology, make further evaluation on her as indicated and make adjustments accordingly. CAMACHO DUNHAM MD DR: MARCELO/preethi JOB#: [id number] / [id number]
[2018-01-02] MEDS ORDERED: ACETAMINOPHEN 325 MG TABLET PO PRN (23:30)
[2018-01-02 23:58] LABS: INFLUENZA A PATIENT NEGATIVE (NEGATIVE); INFLUENZA B PATIENT NEGATIVE (NEGATIVE)
[2018-01-03] VITALS (23 sets, daily range): BP systolic 98–177; BP diastolic 43–86
--- NOTE | 2018-01-03 00:38 | RAD ---
INDICATION: Fever, cough. ICU physician requests read tonight. Exam from 01/01/2018 sent for comparison COMPARISON: One day prior FINDINGS: Single view of chest obtained. Focal opacity is now seen in the right lower lung. Cardiac silhouette similar to prior with calcific atherosclerosis. Degenerative changes IMPRESSION: Focal opacity right lower lung could be from pneumonia, aspiration or atelectasis. Electronically signed by: Johnnie Koenig MD (01/03/2018 12:34 AM) [facility]
[2018-01-03] MEDS ORDERED: IV NORMAL SALINE 500ML 500 ML IV ONE (01:30)
[2018-01-03] MEDS: AZITHROMYCIN 500 MG in IV NORMAL SALINE 250ML 250 ML IV SCH (02:53)
[2018-01-03] MEDS: IPRATRPIUM/ALBUTEROL 0.5/2.5MG 3 ML NEBU. NEB SCH ×3 (05:15→20:35)
[2018-01-03] MEDS: INSULIN ASPART 300 UNITS/3 ML INSULN.PEN SQ SCH ×4 (08:28→20:34)
[2018-01-03] MEDS: LACTOBACILLUS RHAMNOSUS GG 1 CAPSULE. PO SCH ×2 (08:59→21:10)
[2018-01-03] MEDS: predniSONE 10 MG TABLET PO SCH (08:59)
[2018-01-03] MEDS: METOPROLOL TART IMMED RELEASE 50 MG TABLET PO SCH ×2 (09:00→21:10)
[2018-01-03] MEDS: KETOTIFEN FUMARATE 0.025% OPHT SOLUTION BOTTLE. OU SCH ×2 (09:00→21:10)
[2018-01-03] MEDS: APIXABAN 5 MG TABLET. PO SCH ×2 (09:00→21:10)
[2018-01-03] MEDS: FERROUS SULFATE 325 MG TABLET. PO SCH (09:00)
[2018-01-03] MEDS: metFORMIN 500 MG TABLET PO SCH ×2 (09:00→16:58)
[2018-01-03] MEDS: FLUTICASONE 50MCG/NASAL SPRAY 16GM BOTTLE. NS SCH (09:00)
[2018-01-03 09:23] LABS: BASO # 0.1 x10^3/uL (0.0-0.2); BASO % 1 % (0-3); EOS % 0 % (0-3); HEMOGLOBIN 10.7 g/dL (12.0-15.5); LYMPH # 1.9 x10^3/uL (1.0-4.8); LYMPH % 14 % (24-48); MEAN CORPUSCULAR HEMOGLOBIN 28 pg (25-35); MEAN CORPUSCULAR HGB CONC 32 g/dL (31-37); MEAN CORPUSCULAR VOLUME 85 fL (79-100); MONO # 0.6 x10^3/uL (0.0-1.1); MONO % 4 % (0-9); NEUT # 10.5 x10^3uL (1.8-7.7); NEUT % 81 % (31-73); PLATELET COUNT 103 x10^3/uL (140-400); RED BLOOD COUNT 3.86 x10^6/uL (3.50-5.40); RED CELL DISTRIBUTION WIDTH 14.8 % (11.5-14.5)
[2018-01-03 09:35] LABS: CALCIUM 7.9 mg/dL (8.5-10.1); CREATININE 1.1 mg/dL (0.6-1.0); GFR 57.3; MAGNESIUM 0.9 mg/dL (1.8-2.4); POTASSIUM 3.9 mmol/L (3.5-5.1)
[2018-01-03] MEDS: MAGNESIUM CHLORIDE ER 64 MG TABLET.ER PO SCH ×2 (10:56→21:10)
[2018-01-03 11:15] LABS: % ATYL 7 % (0-0); % BANDS 15 % (0-9); % BASOS 0 % (0-3); % EOS 0 % (0-5); % LYMPHS 10 % (24-48); % METAS 1 % (0-0); % MONOS 3 % (0-10); % SEGS 64 % (35-66)
[2018-01-03 11:16] LABS: PLT ESTIMATE DECREASED (ADEQUATE); TOXIC VACUOLATION PRESENT
[2018-01-03] MEDS: ATORVASTATIN CALCIUM 20 MG TABLET PO SCH (21:10)
[2018-01-03] MEDS: INSULIN DETEMIR 300 UNITS/3 ML INSULN.PEN. SQ SCH (21:11)
[2018-01-04] VITALS (17 sets, daily range): BP systolic 115–152; BP diastolic 49–81
[2018-01-04] MEDS: cefTRIAXone IV Push 1 GM VIAL. IVP SCH (01:14)
[2018-01-04] MEDS: AZITHROMYCIN 500 MG in IV NORMAL SALINE 250ML 250 ML IV SCH (01:15)
--- NOTE | 2018-01-04 01:25 | PN ---
DATE: 01/03/2018 SUBJECTIVE: An 82-year-old female who came initially in with multifocal atrial tachycardia, mild acute CHF. The patient also was noted to running a fever. Chest x-ray demonstrated pneumonic process. She has been placed on IV antibiotic therapy and aggressive pulmonary toilet. The patient is doing relatively well at the present time. She is also receiving breathing treatments. OBJECTIVE: VITAL SIGNS: Blood pressure 136/50, respiratory rate 22, pulse 95. She had one temperature of 102.9, seems to be doing better on that. We will go ahead. LUNGS: Diminished throughout, poor movement of air. CARDIOVASCULAR: Regular sinus rhythm, occasional dropped beat. ABDOMEN: Soft, nontender. Continue with IV antibiotic therapy and make further evaluation on her, maybe consider doing a swallowing study. IMPRESSION: Pneumonia, unknown etiology, multifocal atrial tachycardia and that of acute diastolic heart failure. PLAN: Continue her present therapy of antibiotics and mild diuresis. CAMACHO DUNHAM MD DR: MARCELO/preethi JOB#: [id number] / [id number]
[2018-01-04] MEDS: IPRATRPIUM/ALBUTEROL 0.5/2.5MG 3 ML NEBU. NEB SCH ×3 (06:37→21:21)
[2018-01-04] MEDS: INSULIN ASPART 300 UNITS/3 ML INSULN.PEN SQ SCH ×4 (07:30→21:00)
[2018-01-04] MEDS: metFORMIN 500 MG TABLET PO SCH ×2 (08:00→17:12)
[2018-01-04 08:16] LABS: BASO % 0 % (0-3); EOS # 0.1 x10^3/uL (0.0-0.7); EOS % 1 % (0-3); HEMATOCRIT 30.3 % (36.0-47.0); HEMOGLOBIN 10.1 g/dL (12.0-15.5); LYMPH # 2.3 x10^3/uL (1.0-4.8); LYMPH % 24 % (24-48); MEAN CORPUSCULAR HEMOGLOBIN 28 pg (25-35); MEAN CORPUSCULAR HGB CONC 33 g/dL (31-37); MEAN CORPUSCULAR VOLUME 85 fL (79-100); MONO # 0.5 x10^3/uL (0.0-1.1); MONO % 5 % (0-9); NEUT # 6.8 x10^3uL (1.8-7.7); NEUT % 71 % (31-73); PLATELET COUNT 104 x10^3/uL (140-400); RED BLOOD COUNT 3.56 x10^6/uL (3.50-5.40); RED CELL DISTRIBUTION WIDTH 14.3 % (11.5-14.5); WHITE BLOOD COUNT 9.6 x10^3/uL (4.0-11.0)
[2018-01-04 08:26] LABS: CALCIUM 8.2 mg/dL (8.5-10.1); CREATININE 0.8 mg/dL (0.6-1.0); GFR 82.7; MAGNESIUM 1.1 mg/dL (1.8-2.4); POTASSIUM 3.3 mmol/L (3.5-5.1)
[2018-01-04] MEDS: KETOTIFEN FUMARATE 0.025% OPHT SOLUTION BOTTLE. OU SCH ×2 (09:00→21:47)
[2018-01-04] MEDS: FLUTICASONE 50MCG/NASAL SPRAY 16GM BOTTLE. NS SCH (09:00)
[2018-01-04] MEDS: LACTOBACILLUS RHAMNOSUS GG 1 CAPSULE. PO SCH ×2 (09:44→21:46)
[2018-01-04] MEDS: FERROUS SULFATE 325 MG TABLET. PO SCH (09:44)
[2018-01-04] MEDS: METOPROLOL TART IMMED RELEASE 50 MG TABLET PO SCH ×2 (09:44→21:47)
[2018-01-04] MEDS: MAGNESIUM CHLORIDE ER 64 MG TABLET.ER PO SCH ×2 (09:44→21:46)
[2018-01-04] MEDS: APIXABAN 5 MG TABLET. PO SCH ×2 (09:44→21:46)
[2018-01-04] MEDS: predniSONE 10 MG TABLET PO SCH (09:45)
[2018-01-04] MEDS: ATORVASTATIN CALCIUM 20 MG TABLET PO SCH (21:46)
[2018-01-04] MEDS: INSULIN DETEMIR 300 UNITS/3 ML INSULN.PEN. SQ SCH (21:53)
--- NOTE | 2018-01-04 23:24 | PN ---
DATE: SUBJECTIVE: An 82-year-old female with multifocal tachycardia, but now developed. Pneumonia was also noted. The patient is on IV antibiotic therapy. She is resting fairly comfortably, making fairly good progress, had a low blood sugar last night; however, it has come back up in the range, in the 160, it was down as low as 34. She is not eating well, put her on Megace to help her with her appetite. Otherwise, we will repeat chest x-ray in the morning. OBJECTIVE: VITAL SIGNS: Blood pressure 145/80, respiratory rate 18, pulse 90, afebrile, oxygen saturation 92%. GENERAL: The patient alert and oriented. LUNGS: Diminished throughout, but clear. CARDIOVASCULAR: Regular sinus rhythm. ABDOMEN: Soft, nontender. IMPRESSION: Pneumonia of unspecified etiology, community-acquired, and multifocal tachycardia, hyperglycemia, hypertension essential. CAMACHO DUNHAM MD DR: MARCELO/preethi JOB#: [id number] / [id number]
[2018-01-05] VITALS (9 sets, daily range): BP systolic 105–160; BP diastolic 45–88
[2018-01-05] MEDS: IPRATRPIUM/ALBUTEROL 0.5/2.5MG 3 ML NEBU. NEB SCH ×2 (05:26→10:58)
[2018-01-05] MEDS: cefTRIAXone IV Push 1 GM VIAL. IVP SCH (05:53)
[2018-01-05] MEDS: AZITHROMYCIN 500 MG in IV NORMAL SALINE 250ML 250 ML IV SCH (05:54)
[2018-01-05 07:07] LABS: CALCIUM 8.4 mg/dL (8.5-10.1); CREATININE 0.7 mg/dL (0.6-1.0); GFR 96.5; POTASSIUM 3.7 mmol/L (3.5-5.1)
[2018-01-05 07:13] LABS: BASO % 0 % (0-3); EOS # 0.1 x10^3/uL (0.0-0.7); EOS % 1 % (0-3); HEMATOCRIT 28.7 % (36.0-47.0); HEMOGLOBIN 9.6 g/dL (12.0-15.5); LYMPH # 2.3 x10^3/uL (1.0-4.8); LYMPH % 24 % (24-48); MEAN CORPUSCULAR HEMOGLOBIN 29 pg (25-35); MEAN CORPUSCULAR HGB CONC 33 g/dL (31-37); MEAN CORPUSCULAR VOLUME 86 fL (79-100); MONO # 0.4 x10^3/uL (0.0-1.1); MONO % 5 % (0-9); NEUT # 6.7 x10^3uL (1.8-7.7); NEUT % 70 % (31-73); PLATELET COUNT 100 x10^3/uL (140-400); RED BLOOD COUNT 3.35 x10^6/uL (3.50-5.40); RED CELL DISTRIBUTION WIDTH 14.7 % (11.5-14.5); WHITE BLOOD COUNT 9.6 x10^3/uL (4.0-11.0)
[2018-01-05] MEDS: INSULIN ASPART 300 UNITS/3 ML INSULN.PEN SQ SCH ×2 (07:44→12:24)
[2018-01-05] MEDS: LACTOBACILLUS RHAMNOSUS GG 1 CAPSULE. PO SCH (08:41)
[2018-01-05] MEDS: FERROUS SULFATE 325 MG TABLET. PO SCH (08:41)
[2018-01-05] MEDS: FLUTICASONE 50MCG/NASAL SPRAY 16GM BOTTLE. NS SCH (08:41)
[2018-01-05] MEDS: KETOTIFEN FUMARATE 0.025% OPHT SOLUTION BOTTLE. OU SCH (08:41)
[2018-01-05] MEDS: MAGNESIUM CHLORIDE ER 64 MG TABLET.ER PO SCH (08:41)
[2018-01-05] MEDS: METOPROLOL TART IMMED RELEASE 50 MG TABLET PO SCH (08:42)
[2018-01-05] MEDS: predniSONE 10 MG TABLET PO SCH (08:42)
[2018-01-05] MEDS: metFORMIN 500 MG TABLET PO SCH (08:42)
[2018-01-05] MEDS: APIXABAN 5 MG TABLET. PO SCH (08:42)
[2018-01-05] MEDS ORDERED: MEGESTROL 40 MG TABLET. PO SCH (09:00)
--- NOTE | 2018-01-05 10:05 | PDOC ---
PROGRESS NOTES Diagnosis Problem Problems Medical Problems: (1) Acute systolic CHF (congestive heart failure) Status: Acute (2) Hypokalemia Status: Acute (3) Multifocal atrial tachycardia Status: Acute Assessment Problems Medical Problems: (1) Acute systolic CHF (congestive heart failure) Status: Acute (2) Hypokalemia Status: Acute (3) Multifocal atrial tachycardia Status: Acute Atrial fibrillation, paroxysmal. She had some brief episodes tachycardia on . This seems to have resolved. We will continue metoprolol for rate control in the event she has recurrent atrial fibrillation and Eliquis for stroke prevention. This arrhythmia may have been brought on by her acute pulmonary illness. We will consider an event recorder as an outpatient. Essential hypertension blood pressures have been up in down. We will continue to monitor this on the metoprolol. Hypercholesterolemia. Continue statin medication. Dyspnea. Likely related to her pulmonary illness. This has now improved. Disposition. From a cardiac standpoint, the patient can be discharged home. We will arrange for follow-up with our office in approximately 1 week. Problems: Subjective We are seeing her for atrial fibrillation. S: Her dyspnea is improved. She still has a slight cough but this has also improved. She denies chest pain, palpitations, syncope, or lower extremity edema. She feels as though she is ready for discharge. Objective Vital Signs Date Time Temp Pulse Resp B/P (MAP) Pulse Ox O2 Delivery O2 Flow Rate FiO2 01/05/18 09:20 87 23 160/74 (102) 100 Room Air 01/04/18 19:00 98.4 01/04/18 16:00 2.0 Intake and Output 01/05/18 07:00 Intake Total 740 ml Balance 740 ml Intake Oral 740 ml # Voids 4 Abdomen: Normal bowel sounds, Soft Heart: Regular rate, Normal S1, Normal S2, No murmurs Extremities: No clubbing, No cyanosis, No edema, Normal pulses, No tenderness/ swelling General: Alert, Oriented X3, Cooperative, No acute distress HEENT: Atraumatic, EOMI, Mucous membr. moist/pink Lungs: Clear to auscultation, Normal air movement Neck: No JVD, +2 carotid pulse wo bruit Neuro: Normal speech, Normal tone, Cranial nerves 3-12 NL Psych/Mental Status: Mental status NL, Mood NL Skin: No rashes, No breakdown, No significant lesion Review of Relevant I have reviewed the following items sandra (where applicable) has been applied. Labs Laboratory Tests Test 01/03/18 11:37 01/03/18 16:57 01/03/18 20:30 01/04/18 07:43 Glucose (Fingerstick) 223 mg/dL (70-99) 255 mg/dL (70-99) 211 mg/dL (70-99) White Blood Count 9.6 x10^3/uL (4.0-11.0) Red Blood Count 3.56 x10^6/uL (3.50-5.40) Hemoglobin 10.1 g/dL (12.0-15.5) Hematocrit 30.3 % (36.0-47.0) Mean Corpuscular Volume 85 fL (79-100) Mean Corpuscular Hemoglobin 28 pg (25-35) Mean Corpuscular Hemoglobin Concent 33 g/dL (31-37) Red Cell Distribution Width 14.3 % (11.5-14.5) Platelet Count 104 x10^3/uL (140-400) Neutrophils (%) (Auto) 71 % (31-73) Lymphocytes (%) (Auto) 24 % (24-48) Monocytes (%) (Auto) 5 % (0-9) Eosinophils (%) (Auto) 1 % (0-3) Basophils (%) (Auto) 0 % (0-3) Neutrophils # (Auto) 6.8 x10^3uL (1.8-7.7) Lymphocytes # (Auto) 2.3 x10^3/uL (1.0-4.8) Monocytes # (Auto) 0.5 x10^3/uL (0.0-1.1) Eosinophils # (Auto) 0.1 x10^3/uL (0.0-0.7) Basophils # (Auto) 0.0 x10^3/uL (0.0-0.2) Sodium Level 141 mmol/L (136-145) Potassium Level 3.3 mmol/L (3.5-5.1) Chloride Level 102 mmol/L (98-107) Carbon Dioxide Level 37 mmol/L (21-32) Anion Gap 2 (6-14) Blood Urea Nitrogen 13 mg/dL (7-20) Creatinine 0.8 mg/dL (0.6-1.0) Estimated GFR (Cockcroft-Gault) 82.7 Glucose Level 39 mg/dL (70-99) Calcium Level 8.2 mg/dL (8.5-10.1) Magnesium Level 1.1 mg/dL (1.8-2.4) Test 01/04/18 08:21 01/04/18 08:39 01/04/18 09:16 01/04/18 09:33 Glucose (Fingerstick) 35 mg/dL (70-99) 34 mg/dL (70-99) 86 mg/dL (70-99) 61 mg/dL (70-99) Test 01/04/18 10:03 01/04/18 11:23 01/04/18 17:10 01/04/18 21:46 Glucose (Fingerstick) 81 mg/dL (70-99) 164 mg/dL (70-99) 170 mg/dL (70-99) 184 mg/dL (70-99) Test 01/05/18 05:40 01/05/18 07:21 White Blood Count 9.6 x10^3/uL (4.0-11.0) Red Blood Count 3.35 x10^6/uL (3.50-5.40) Hemoglobin 9.6 g/dL (12.0-15.5) Hematocrit 28.7 % (36.0-47.0) Mean Corpuscular Volume 86 fL (79-100) Mean Corpuscular Hemoglobin 29 pg (25-35) Mean Corpuscular Hemoglobin Concent 33 g/dL (31-37) Red Cell Distribution Width 14.7 % (11.5-14.5) Platelet Count 100 x10^3/uL (140-400) Neutrophils (%) (Auto) 70 % (31-73) Lymphocytes (%) (Auto) 24 % (24-48) Monocytes (%) (Auto) 5 % (0-9) Eosinophils (%) (Auto) 1 % (0-3) Basophils (%) (Auto) 0 % (0-3) Neutrophils # (Auto) 6.7 x10^3uL (1.8-7.7) Lymphocytes # (Auto) 2.3 x10^3/uL (1.0-4.8) Monocytes # (Auto) 0.4 x10^3/uL (0.0-1.1) Eosinophils # (Auto) 0.1 x10^3/uL (0.0-0.7) Basophils # (Auto) 0.0 x10^3/uL (0.0-0.2) Sodium Level 138 mmol/L (136-145) Potassium Level 3.7 mmol/L (3.5-5.1) Chloride Level 101 mmol/L (98-107) Carbon Dioxide Level 35 mmol/L (21-32) Anion Gap 2 (6-14) Blood Urea Nitrogen 13 mg/dL (7-20) Creatinine 0.7 mg/dL (0.6-1.0) Estimated GFR (Cockcroft-Gault) 96.5 Glucose Level 99 mg/dL (70-99) Calcium Level 8.4 mg/dL (8.5-10.1) Glucose (Fingerstick) 103 mg/dL (70-99) Microbiology 01/02/18 Blood Culture - Preliminary, Resulted NO GROWTH AFTER 2 DAYS Medications Current Medications Digoxin (Lanoxin) 500 mcg 1X ONCE IV Last administered on 01/01/18at 15:13; Start 01/01/18 at 15:00; Stop 01/01/18 at 15:01; Status DC Sodium Chloride 50 ml @ As Directed STK-MED ONCE .ROUTE ; Start 01/01/18 at 14: 59; Stop 01/01/18 at 15:00; Status DC Enoxaparin Sodium (Lovenox) 40 mg Q24H SQ ; Start 01/01/18 at 17:30; Stop at 17:39; Status DC Enoxaparin Sodium (Lovenox) 40 mg Q24H SQ Last administered on 01/01/18at 20:37 ; Start 01/01/18 at 21:00; Stop 01/02/18 at 09:55; Status DC Amlodipine Besylate (Norvasc) 10 mg DAILY PO ; Start 01/02/18 at 09:00; Stop at 09:52; Status DC Carvedilol (Coreg) 12.5 mg BID PO ; Start 01/01/18 at 21:00; Stop 01/02/18 at 09 :52; Status DC Ferrous Sulfate (Feosol) 325 mg DAILY PO Last administered on 01/05/18at 08:41; Start 01/02/18 at 09:00 Furosemide (Lasix) 20 mg DAILY PO ; Start 01/02/18 at 09:00; Stop 01/02/18 at 09 :52; Status DC Albuterol/ Ipratropium (Duoneb) 3 ml TID NEB Last administered on 01/05/18at 05: 26; Start 01/01/18 at 21:00 Ketotifen Fumarate (Zaditor) 1 drop BID OU Last administered on 01/05/18at 08:41 ; Start 01/01/18 at 21:00 Lisinopril (Prinivil) 40 mg DAILY PO ; Start 01/02/18 at 09:00; Stop 01/02/18 at 09:52; Status DC Metformin HCl (Glucophage) 1,000 mg BIDWMEALS PO Last administered on at 08:42; Start 01/02/18 at 08:00 Prednisone (Prednisone) 10 mg DAILY PO Last administered on 01/05/18at 08:42; Start 01/02/18 at 09:00 Sodium Chloride (Saline Mist Nasal) 2 hao PRN QID PRN NS NASAL CONGESTION; Start 01/01/18 at 18:15 Atorvastatin Calcium (Lipitor) 80 mg QHS PO Last administered on 01/04/18at 21: 46; Start 01/01/18 at 21:00 Fluticasone Propionate (Flonase) 2 spray DAILY NS Last administered on at 08:41; Start 01/02/18 at 09:00 Hydrochlorothiazide (Hydrodiuril) 25 mg DAILY PO ; Start 01/02/18 at 09:00; Stop 01/02/18 at 09:55; Status DC Insulin Detemir (Levemir) 15 units QHS SQ Last administered on 01/04/18at 21:53 ; Start 01/01/18 at 21:00 Non-Formulary Medication 1 drop BID EACHEYE ; Start 01/01/18 at 21:00; Stop at 21:00; Status DC Insulin Aspart (NovoLOG) 0-7 UNITS QIDACHS SQ Last administered on 01/04/18at 17 :14; Start 01/01/18 at 21:00 Dextrose 12.5 gm PRN Q15MIN PRN IV SEE COMMENTS; Start 01/01/18 at 18:15 Diltiazem HCl 125 mg/Dextrose 125 ml @ 0 mls/hr CONT PRN IV SEE I/O RECORD Last administered on 01/01/18at 18:43; Start 01/01/18 at 18:30 Potassium Chloride (Klor-Con) 40 meq 1X ONCE PO Last administered on at 19:40; Start 01/01/18 at 19:30; Stop 01/01/18 at 19:32; Status DC Potassium Chloride (Klor-Con) 40 meq 1X ONCE PO Last administered on at 21:51; Start 01/01/18 at 22:00; Stop 01/01/18 at 22:01; Status DC Non-Formulary Medication 1 vial Q6HRS PRN NEB SHORTNESS OF BREATH; Start at 22:15; Stop 01/01/18 at 22:39; Status DC Insulin Aspart (NovoLOG) 150 units TIDAC SQ ; Start 01/02/18 at 07:30; Stop at 12:02; Status DC Albuterol Sulfate (Ventolin) 2.5 mg PRN Q6HRS PRN NEB SHORTNESS OF BREATH; Start 01/01/18 at 22:45 Metoprolol Tartrate (Lopressor) 25 mg BID PO Last administered on 01/02/18at 10: 26; Start 01/02/18 at 10:00; Stop 01/02/18 at 17:44; Status DC Apixaban (Eliquis) 5 mg BID PO Last administered on 01/05/18at 08:42; Start at 10:00 Magnesium Sulfate 50 ml @ 25 mls/hr 1X ONCE IV Last administered on 01/02/18at 10:26; Start 01/02/18 at 10:15; Stop 01/02/18 at 12:15; Status DC Metoprolol Tartrate (Lopressor) 50 mg BID PO Last administered on 01/05/18at 08: 42; Start 01/02/18 at 21:00 Metoprolol Tartrate (Lopressor Vial) 5 mg 1X ONCE IV Last administered on 01/02at 22:40; Start 01/02/18 at 17:45; Stop 01/02/18 at 17:47; Status DC Metoprolol Tartrate (Lopressor Vial) 5 mg STK-MED ONCE IV ; Start 01/02/18 at 22 :38; Stop 01/02/18 at 22:39; Status DC Acetaminophen (Tylenol) 650 mg PRN Q4HRS PRN PO fever Last administered on 01/02at 23:38; Start 01/02/18 at 23:30 Ceftriaxone Sodium 1 gm/ Sodium Chloride 50 ml @ 100 mls/hr Q24H IV Last administered on 01/03/18at 01:40; Start 01/03/18 at 01:30; Stop 01/03/18 at 07:10 ; Status DC Azithromycin 500 mg/Sodium Chloride 250 ml @ 250 mls/hr Q24H IV Last administered on 01/05/18at 05:54; Start 01/03/18 at 02:00 Sodium Chloride 500 ml @ 500 mls/hr 1X ONCE IV Last administered on at 01:40; Start 01/03/18 at 01:30; Stop 01/03/18 at 02:29; Status DC Lactobacillus Rhamnosus (Culturelle) 1 cap BID PO Last administered on at 08:41; Start 01/03/18 at 09:00 Ceftriaxone Sodium (Rocephin) 1 gm Q24H IVP Last administered on 01/05/18at 05: 53; Start 01/04/18 at 01:00 Magnesium Chloride (Mag Delay) 64 mg BID PO Last administered on 01/05/18at 08: 41; Start 01/03/18 at 10:45 Megestrol Acetate (Megace) 40 mg DAILY PO Last administered on 01/05/18at 08:42 ; Start 01/05/18 at 09:00 Active Scripts Active Prednisone 20 Mg Tablet 10 Mg PO DAILY 20 Days Duoneb 0.5-3(2.5) Mg/3 Ml (Albuterol/Ipratropium) 3 Ml Ampul.neb 3 Ml NEB TID 30 Days Reported Zaditor (Ketotifen Fumarate) 5 Ml Drops 1 Drop EACHEYE BID LAST DOSE GIVEN: DATE:TODAY TIME:AM NEXT DOSE DUE: DATE:TODAY TIME:PM Furosemide 20 Mg Tablet 20 Mg PO DAILY LAST DOSE GIVEN: DATE:TODAY TIME:AM NEXT DOSE DUE: DATE:TOMORROW TIME:AM Humalog Kwikpen (Insulin Lispro) 200 Unit/1 Ml Insuln.pen 150 Unit SQ TIDAC LAST DOSE GIVEN: DATE:YES TIME:DINNER NEXT DOSE DUE: DATE: TIME:LUNCH IF NEEDED Levemir (Insulin Detemir) 100 Unit/1 Ml Vial 15 Unit SQ HS LAST DOSE GIVEN: DATE: TIME:BEDTIME NEXT DOSE DUE: DATE: TIME:BEDTIME Atorvastatin Calcium 80 Mg Tablet 80 Mg PO QHS LAST DOSE GIVEN: DATE: TIME:BEDTIME NEXT DOSE DUE: DATE:TODAY TIME:BEDTIME Coreg (Carvedilol) 12.5 Mg Tablet 1 Tab PO BID LAST DOSE GIVEN: DATE: TIME:AM NEXT DOSE DUE: DATE: TIME:PM Patanol (Olopatadine Hcl) 5 Ml Drops 1 Drop EACHEYE BID LAST DOSE GIVEN: DATE: TIME:AM NEXT DOSE DUE: DATE: TIME:PM Flonase Allergy Relief (Fluticasone Propionate) 9.9 Ml Stevens.susp 2 Sprays NS DAILY LAST DOSE GIVEN: DATE: TIME:AM NEXT DOSE DUE: DATE:TOMORROW TIME:AM Albuterol Sulfate Neb Soln (Albuterol Sulfate) 1.25 Mg/3 Ml Vial.neb 1 Vial NEB Q6HRS PRN LAST DOSE GIVEN: DATE: TIME:AM NEXT DOSE DUE: DATE: TIME:PM IF AND WHEN NEEDED Saline Nasal Stevens (Sodium Chloride) 30 Ml Stevens 1 Spr NS QID LAST DOSE GIVEN: DATE: TIME:AM NEXT DOSE DUE: DATE: TIME:NOON Ferrous Sulfate 325 Mg Tablet 1 Tab PO DAILY LAST DOSE GIVEN: DATE: TIME:AM NEXT DOSE DUE: DATE:TOMORROW TIME:AM Metformin Hcl 500 Mg Tablet 2 Tab PO BID LAST DOSE GIVEN: DATE: TIME:AM NEXT DOSE DUE: DATE:TODAY TIME:PM Lisinopril 20 Mg Tablet 2 Tab PO DAILY LAST DOSE GIVEN: DATE: TIME:AM NEXT DOSE DUE: DATE:ORR TIME:AM Hydrochlorothiazide Tablet (Hydrochlorothiazide) 12.5 Mg Tablet 25 Mg PO DAILY LAST DOSE GIVEN: DATE: TIME:AM NEXT DOSE DUE: DATE: TIME:AM Norvasc (Amlodipine Besylate) 10 Mg Tablet 1 Tab PO DAILY LAST DOSE GIVEN: DATE: TIME:AM NEXT DOSE DUE: DATE:TOMORROW TIME:AM Vitals/I & O Vital Sign - Last 24 Hours 01/04/18 01/04/18 01/04/18 01/04/18 10:59 11:55 12:08 13:05 Pulse 99 81 B/P (MAP) 145/81 (102) 152/64 (93) Pulse Ox 92 O2 Delivery Nasal Cannula Nasal Cannula O2 Flow Rate 2.0 2.0 01/04/18 01/04/18 01/04/18 01/04/18 14:09 15:59 16:00 16:57 Pulse 87 88 96 B/P (MAP) 140/63 (88) 133/61 (85) 131/59 (83) O2 Delivery Nasal Cannula O2 Flow Rate 2.0 01/04/18 01/04/18 01/04/18 01/04/18 17:52 19:00 19:30 20:00 Temp 98.4 Pulse 88 88 84 Resp 24 24 B/P (MAP) 142/68 (92) 140/70 (93) 145/70 (95) Pulse Ox 99 98 O2 Delivery Room Air Room Air Room Air 01/04/18 01/04/18 01/04/18 01/04/18 21:00 21:20 21:47 22:00 Pulse 80 83 84 B/P (MAP) 148/69 (95) 148/69 148/68 (94) Pulse Ox 100 99 100 O2 Delivery Room Air Room Air Room Air 01/04/18 01/04/18 01/05/18 01/05/18 23:00 23:40 00:01 01:00 Pulse 86 76 78 Resp 20 20 B/P (MAP) 115/49 (71) 105/45 (65) Pulse Ox 100 98 96 O2 Delivery Room Air Room Air Room Air Room Air 01/05/18 01/05/18 01/05/18 01/05/18 02:00 03:00 03:00 04:00 Pulse 74 82 76 Resp 18 18 20 B/P (MAP) 116/51 (72) 113/50 (71) 112/50 (70) Pulse Ox 96 98 97 O2 Delivery Room Air Room Air Room Air Room Air 01/05/18 01/05/18 01/05/18 01/05/18 05:00 05:25 06:00 07:48 Pulse 74 80 84 Resp 18 20 28 B/P (MAP) 128/56 (80) 150/65 (93) 123/56 (78) Pulse Ox 96 98 97 91 O2 Delivery Room Air Room Air Room Air Room Air 01/05/18 01/05/18 01/05/18 08:22 08:42 09:20 Pulse 85 87 Resp 23 B/P (MAP) 163/84 160/74 (102) Pulse Ox 100 O2 Delivery Room Air Room Air Intake and Output 01/04/18 01/04/18 01/05/18 15:00 23:00 07:00 Intake Total 500 ml 240 ml Balance 500 ml 240 ml EVELIN HINDS Jr, MD Jan 05, 2018 10:05
--- NOTE | 2018-01-05 11:03 | RAD ---
CT of the chest without contrast, 01/05/2018: History: Cough, pneumonia, possible mass Noncontrast scans were obtained as requested. There is moderate calcific plaquing of the thoracic aorta and its branches including the coronary arteries. The thoracic aorta is not dilated. The heart size is normal. No mediastinal adenopathy is seen. There are small bilateral pleural effusions, right greater than left. There is moderate underlying atelectasis posteriorly in the right lower lobe. There are mild hazy perihilar infiltrates on the right with dominant involvement of the right middle and lower lobes. No significant interlobular septal thickening is seen. There is minimal atelectasis posteriorly in the left base. There is no evidence of pneumothorax. Moderate scattered degenerative changes are present in the spine. IMPRESSION: 1. Small pleural effusions, right greater than left, with underlying bibasilar atelectasis, also worse on the right. 2. Right parahilar predominantly groundglass type infiltrates suggesting pneumonia. Unilateral pulmonary edema is less likely. 3. Moderate calcific plaquing of the aorta and coronary arteries. PQRS Compliance Statement: One or more of the following individualized dose reduction techniques were utilized for this examination: 1. Automated exposure control 2. Adjustment of the mA and/or kV according to patient size 3. Use of iterative reconstruction technique
--- NOTE | 2018-01-05 11:06 | RAD ---
Chest, 2 views, 01/05/2018: History: Follow-up pneumonia Comparison is made to a study from 01/02/2018. The heart size is normal. There is calcific plaquing of the aorta. There are small bilateral pleural effusions, right greater than left. Right infrahilar infiltrate has improved slightly. There is minimal atelectasis medially in the left base, improved since 01/02/2018. IMPRESSION: 1. Improving right middle and lower lobe infiltrates compatible with pneumonia. 2. Improving mild left basilar atelectasis. 3. Small bilateral pleural effusions.
--- NOTE | 2018-01-05 11:47 | DS ---
DATE OF DISCHARGE: NO DICTATION CAMACHO DUNHAM MD DR: MARCELO/preethi JOB#: [id number] / [id number]
[2018-01-05] MEDS ORDERED: LACT1CAP21 PO (15:44)
[2018-01-05] MEDS ORDERED: ACET325T9 PO (15:44)
[2018-01-05] MEDS ORDERED: MEGE40TA PO (15:44)
[2018-01-05] MEDS ORDERED: METO50TA6 PO (15:44)
[2018-01-05] MEDS ORDERED: MAGN70TA PO (15:44)
[2018-01-05] MEDS ORDERED: APIX5TAB3 PO (15:44)
== END 2018-01-05 16:14 | disposition home or self-care (01) | DRG 291 ==
LOC: ER 14:27 → UNDOADMOB 16:21 → ICU 16:21
PROVIDERS: ADMIT Family Medicine; ATTEND Family Medicine
DX: I11.0 Hypertensive heart disease with heart failure (principal); J18.9 Pneumonia, unspecified organism; E11.65 Type 2 diabetes mellitus with hyperglycemia; E83.42 Hypomagnesemia; I48.0 Paroxysmal atrial fibrillation; E88.09 Other disorders of plasma-protein metabolism, not elsewhere classified; D64.9 Anemia, unspecified; I47.1 Supraventricular tachycardia; I50.41 Acute combined systolic (congestive) and diastolic (congestive) heart failure; E87.6 Hypokalemia; J45.909 Unspecified asthma, uncomplicated; Z66 Do not resuscitate; Z85.9 Personal history of malignant neoplasm, unspecified; I35.8 Other nonrheumatic aortic valve disorders
CPT/HCPCS: 36415; 71045; 71046; 71250; 80048; 80053; 82553; 82947; 83735; 84484; 85007; 85025; 87040; 87641; 87804; 93005; 93306; 94640; J0456; J0696; J1160; J1650; J1815; J3475; J3490; J7040; J7050; J7512; J7620; 97110; 97116; 97530; 97535; 99285-25

== ENCOUNTER 2018-01-05 16:16 | Inpatient (IN) | payer MEDICARE ==
[~2018-01-05] VITALS: Ht 160 cm; Wt 62.3 kg
[~2018-01-05 16:16] MED LIST changes: +ACET325T9 PO; +APIX5TAB3 PO; +LACT1CAP21 PO; +MAGN70TA PO; +MEGE40TA PO; +METO50TA6 PO
[2018-01-05] MEDS ORDERED: DEXTROSE 50% 25 GM / 50ML DISP.SYRIN. IV PRN (17:00)
[2018-01-05] MEDS ORDERED: ACETAMINOPHEN 325 MG TABLET PO PRN (19:45)
[2018-01-05] MEDS ORDERED: NON FORMULARY ITEM (Albuterol Sulfate (Albuterol Sulfate Neb Soln) 1 VIAL) NEB PRN (19:45)
[2018-01-05 19:47] VITALS: BP 160/63
[2018-01-05] MEDS ORDERED: ALBUTEROL SULFATE 2.5 MG/3 ML NEBU. NEB PRN (20:00)
[2018-01-05] MEDS: AZITHROMYCIN 500 MG in IV NORMAL SALINE 250ML 250 ML IV SCH (20:26)
[2018-01-05] MEDS: KETOTIFEN FUMARATE 0.025% OPHT SOLUTION BOTTLE. OU SCH (20:27)
[2018-01-05] MEDS: LACTOBACILLUS RHAMNOSUS GG 1 CAPSULE. PO SCH (20:27)
[2018-01-05] MEDS: SODIUM CHLORIDE 0.65% NASAL SPRAY 45ML BOTTLE. NS SCH (20:27)
[2018-01-05] MEDS: ATORVASTATIN CALCIUM 20 MG TABLET PO SCH (20:28)
[2018-01-05] MEDS: APIXABAN 5 MG TABLET. PO SCH (20:28)
[2018-01-05] MEDS: METOPROLOL TART IMMED RELEASE 50 MG TABLET PO SCH (20:28)
[2018-01-05] MEDS: INSULIN ASPART 300 UNITS/3 ML INSULN.PEN SQ SCH (20:29)
[2018-01-05] MEDS: INSULIN DETEMIR 300 UNITS/3 ML INSULN.PEN. SQ SCH (20:31)
[2018-01-05] MEDS: MAGNESIUM CHLORIDE ER 64 MG TABLET.ER PO SCH (20:32)
[2018-01-05] MEDS ORDERED: OLOPATADINE HCL EACHEYE SCH (21:00)
[2018-01-05] MEDS: IPRATRPIUM/ALBUTEROL 0.5/2.5MG 3 ML NEBU. NEB SCH (21:28)
[2018-01-05] MEDS: cefTRIAXone IV Push 1 GM VIAL. IVP SCH (22:10)
[2018-01-06] MEDS: guaiFENesin DM 200MG/20MG 10 ML SYRUP PO PRN (04:37)
[2018-01-06] MEDS: IPRATRPIUM/ALBUTEROL 0.5/2.5MG 3 ML NEBU. NEB SCH ×3 (06:14→21:17)
[2018-01-06] MEDS: INSULIN ASPART 300 UNITS/3 ML INSULN.PEN SQ SCH ×4 (07:30→21:00)
[2018-01-06 07:54] VITALS: BP 174/99
[2018-01-06] MEDS: metFORMIN 500 MG TABLET PO SCH ×2 (08:19→17:11)
[2018-01-06] MEDS: FLUTICASONE 50MCG/NASAL SPRAY 16GM BOTTLE. NS SCH (08:19)
[2018-01-06] MEDS: KETOTIFEN FUMARATE 0.025% OPHT SOLUTION BOTTLE. OU SCH ×2 (08:20→20:41)
[2018-01-06] MEDS: SODIUM CHLORIDE 0.65% NASAL SPRAY 45ML BOTTLE. NS SCH ×4 (08:20→20:41)
[2018-01-06] MEDS: LACTOBACILLUS RHAMNOSUS GG 1 CAPSULE. PO SCH ×2 (08:20→19:39)
[2018-01-06] MEDS: APIXABAN 5 MG TABLET. PO SCH ×2 (08:21→19:39)
[2018-01-06] MEDS: MAGNESIUM CHLORIDE ER 64 MG TABLET.ER PO SCH ×2 (08:21→19:39)
[2018-01-06] MEDS: METOPROLOL TART IMMED RELEASE 50 MG TABLET PO SCH ×2 (08:21→19:39)
[2018-01-06] MEDS: FERROUS SULFATE 325 MG TABLET. PO SCH (08:24)
[2018-01-06] MEDS: predniSONE 20 MG TABLET PO SCH (08:24)
[2018-01-06] MEDS: MEGESTROL 40 MG TABLET. PO SCH (08:24)
[2018-01-06] MEDS: AZITHROMYCIN 500 MG in IV NORMAL SALINE 250ML 250 ML IV SCH (19:36)
[2018-01-06] MEDS: ATORVASTATIN CALCIUM 20 MG TABLET PO SCH (19:40)
[2018-01-06] MEDS: INSULIN DETEMIR 300 UNITS/3 ML INSULN.PEN. SQ SCH (21:00)
[2018-01-06] MEDS: cefTRIAXone IV Push 1 GM VIAL. IVP SCH (21:32)
[2018-01-07 03:45] VITALS: BP 163/79
[2018-01-07] MEDS: IPRATRPIUM/ALBUTEROL 0.5/2.5MG 3 ML NEBU. NEB SCH ×3 (06:06→21:37)
[2018-01-07 06:44] VITALS: BP 177/72
[2018-01-07] MEDS: INSULIN ASPART 300 UNITS/3 ML INSULN.PEN SQ SCH ×4 (07:30→20:47)
[2018-01-07] MEDS ORDERED: DEXTROSE ORAL GEL 15 GM TUBE. ONE (07:48)
[2018-01-07] MEDS: FLUTICASONE 50MCG/NASAL SPRAY 16GM BOTTLE. NS SCH (09:50)
[2018-01-07] MEDS: KETOTIFEN FUMARATE 0.025% OPHT SOLUTION BOTTLE. OU SCH ×2 (09:50→20:38)
[2018-01-07] MEDS: SODIUM CHLORIDE 0.65% NASAL SPRAY 45ML BOTTLE. NS SCH ×4 (09:51→20:38)
[2018-01-07] MEDS: LACTOBACILLUS RHAMNOSUS GG 1 CAPSULE. PO SCH ×2 (09:52→20:38)
[2018-01-07] MEDS: metFORMIN 500 MG TABLET PO SCH (09:52)
[2018-01-07] MEDS: predniSONE 20 MG TABLET PO SCH (09:52)
[2018-01-07] MEDS: MEGESTROL 40 MG TABLET. PO SCH (09:52)
[2018-01-07] MEDS: APIXABAN 5 MG TABLET. PO SCH ×2 (09:53→20:38)
[2018-01-07] MEDS: METOPROLOL TART IMMED RELEASE 50 MG TABLET PO SCH ×2 (09:53→20:39)
[2018-01-07] MEDS: MAGNESIUM CHLORIDE ER 64 MG TABLET.ER PO SCH ×2 (09:53→20:38)
[2018-01-07] MEDS: FERROUS SULFATE 325 MG TABLET. PO SCH (09:53)
[2018-01-07 11:23] VITALS: BP 166/76
[2018-01-07 18:27] VITALS: BP 157/67
[2018-01-07 19:47] VITALS: BP 143/88
[2018-01-07] MEDS: ATORVASTATIN CALCIUM 20 MG TABLET PO SCH (20:38)
[2018-01-07] MEDS: INSULIN DETEMIR 300 UNITS/3 ML INSULN.PEN. SQ SCH (20:46)
[2018-01-07] MEDS: cefTRIAXone IV Push 1 GM VIAL. IVP SCH (21:06)
[2018-01-08 05:18] VITALS: BP 177/77
[2018-01-08] MEDS: IPRATRPIUM/ALBUTEROL 0.5/2.5MG 3 ML NEBU. NEB SCH ×3 (05:59→21:45)
[2018-01-08 07:11] LABS: CREATININE 0.8 mg/dL (0.6-1.0); GFR 82.7
[2018-01-08] MEDS: INSULIN ASPART 300 UNITS/3 ML INSULN.PEN SQ SCH ×4 (07:30→20:28)
[2018-01-08] MEDS: KETOTIFEN FUMARATE 0.025% OPHT SOLUTION BOTTLE. OU SCH ×2 (08:42→20:11)
[2018-01-08] MEDS: SODIUM CHLORIDE 0.65% NASAL SPRAY 45ML BOTTLE. NS SCH ×4 (08:43→20:11)
[2018-01-08] MEDS: MAGNESIUM CHLORIDE ER 64 MG TABLET.ER PO SCH ×2 (08:43→20:11)
[2018-01-08] MEDS: FLUTICASONE 50MCG/NASAL SPRAY 16GM BOTTLE. NS SCH (08:43)
[2018-01-08] MEDS: LACTOBACILLUS RHAMNOSUS GG 1 CAPSULE. PO SCH ×2 (08:43→20:10)
[2018-01-08] MEDS: MEGESTROL 40 MG TABLET. PO SCH (08:44)
[2018-01-08] MEDS: FERROUS SULFATE 325 MG TABLET. PO SCH (08:45)
[2018-01-08] MEDS: METOPROLOL TART IMMED RELEASE 50 MG TABLET PO SCH ×2 (08:45→20:10)
[2018-01-08] MEDS: APIXABAN 5 MG TABLET. PO SCH ×2 (08:45→20:10)
[2018-01-08] MEDS: metFORMIN 500 MG TABLET PO SCH (08:46)
[2018-01-08] MEDS: predniSONE 20 MG TABLET PO SCH (08:46)
[2018-01-08 19:10] VITALS: BP 164/74
[2018-01-08] MEDS: ATORVASTATIN CALCIUM 20 MG TABLET PO SCH (20:09)
[2018-01-08] MEDS: INSULIN DETEMIR 300 UNITS/3 ML INSULN.PEN. SQ SCH (20:26)
[2018-01-09] MEDS: IPRATRPIUM/ALBUTEROL 0.5/2.5MG 3 ML NEBU. NEB SCH ×3 (05:56→20:18)
[2018-01-09] MEDS: INSULIN ASPART 300 UNITS/3 ML INSULN.PEN SQ SCH ×4 (07:30→21:07)
[2018-01-09 08:00] VITALS: BP 164/74
[2018-01-09] MEDS: metFORMIN 500 MG TABLET PO SCH (09:18)
[2018-01-09] MEDS: FERROUS SULFATE 325 MG TABLET. PO SCH (09:18)
[2018-01-09] MEDS: predniSONE 20 MG TABLET PO SCH (09:18)
[2018-01-09] MEDS: MEGESTROL 40 MG TABLET. PO SCH (09:18)
[2018-01-09] MEDS: LACTOBACILLUS RHAMNOSUS GG 1 CAPSULE. PO SCH ×2 (09:18→20:58)
[2018-01-09] MEDS: APIXABAN 5 MG TABLET. PO SCH ×2 (09:18→20:58)
[2018-01-09] MEDS: METOPROLOL TART IMMED RELEASE 50 MG TABLET PO SCH ×2 (09:18→20:58)
[2018-01-09] MEDS: MAGNESIUM CHLORIDE ER 64 MG TABLET.ER PO SCH ×2 (09:18→20:58)
[2018-01-09] MEDS: KETOTIFEN FUMARATE 0.025% OPHT SOLUTION BOTTLE. OU SCH ×2 (09:19→21:11)
[2018-01-09] MEDS: SODIUM CHLORIDE 0.65% NASAL SPRAY 45ML BOTTLE. NS SCH ×4 (09:19→21:12)
[2018-01-09] MEDS: FLUTICASONE 50MCG/NASAL SPRAY 16GM BOTTLE. NS SCH ×2 (09:20→21:11)
[2018-01-09 14:56] VITALS: BP 182/81
[2018-01-09] MEDS: ATORVASTATIN CALCIUM 20 MG TABLET PO SCH (20:58)
[2018-01-09] MEDS: INSULIN DETEMIR 300 UNITS/3 ML INSULN.PEN. SQ SCH (21:07)
[2018-01-10] MEDS: IPRATRPIUM/ALBUTEROL 0.5/2.5MG 3 ML NEBU. NEB SCH ×3 (05:55→21:09)
[2018-01-10 06:41] VITALS: BP 162/71
[2018-01-10] MEDS: METOPROLOL TART IMMED RELEASE 50 MG TABLET PO SCH ×2 (09:10→20:06)
[2018-01-10] MEDS: MEGESTROL 40 MG TABLET. PO SCH (09:11)
[2018-01-10] MEDS: predniSONE 20 MG TABLET PO SCH (09:11)
[2018-01-10] MEDS: metFORMIN 500 MG TABLET PO SCH (09:11)
[2018-01-10] MEDS: FERROUS SULFATE 325 MG TABLET. PO SCH (09:11)
[2018-01-10] MEDS: LACTOBACILLUS RHAMNOSUS GG 1 CAPSULE. PO SCH ×2 (09:11→20:07)
[2018-01-10] MEDS: APIXABAN 5 MG TABLET. PO SCH ×2 (09:11→20:07)
[2018-01-10] MEDS: MAGNESIUM CHLORIDE ER 64 MG TABLET.ER PO SCH ×2 (09:11→20:07)
[2018-01-10] MEDS: INSULIN ASPART 300 UNITS/3 ML INSULN.PEN SQ SCH ×4 (09:13→20:10)
[2018-01-10] MEDS: KETOTIFEN FUMARATE 0.025% OPHT SOLUTION BOTTLE. OU SCH ×2 (09:17→20:07)
[2018-01-10] MEDS: SODIUM CHLORIDE 0.65% NASAL SPRAY 45ML BOTTLE. NS SCH ×4 (09:17→20:07)
[2018-01-10 18:47] VITALS: BP 169/96
[2018-01-10] MEDS: ATORVASTATIN CALCIUM 20 MG TABLET PO SCH (20:06)
[2018-01-10] MEDS: INSULIN DETEMIR 300 UNITS/3 ML INSULN.PEN. SQ SCH (20:11)
[2018-01-11] MEDS: IPRATRPIUM/ALBUTEROL 0.5/2.5MG 3 ML NEBU. NEB SCH ×3 (05:47→20:47)
[2018-01-11] MEDS: INSULIN ASPART 300 UNITS/3 ML INSULN.PEN SQ SCH ×4 (07:30→20:53)
[2018-01-11] MEDS: KETOTIFEN FUMARATE 0.025% OPHT SOLUTION BOTTLE. OU SCH ×2 (09:00→20:47)
[2018-01-11] MEDS: SODIUM CHLORIDE 0.65% NASAL SPRAY 45ML BOTTLE. NS SCH ×4 (09:00→20:47)
[2018-01-11] MEDS: FLUTICASONE 50MCG/NASAL SPRAY 16GM BOTTLE. NS SCH (09:33)
[2018-01-11] MEDS: APIXABAN 5 MG TABLET. PO SCH ×2 (09:34→20:49)
[2018-01-11] MEDS: MAGNESIUM CHLORIDE ER 64 MG TABLET.ER PO SCH ×2 (09:34→20:49)
[2018-01-11] MEDS: FERROUS SULFATE 325 MG TABLET. PO SCH (09:34)
[2018-01-11] MEDS: predniSONE 20 MG TABLET PO SCH (09:34)
[2018-01-11] MEDS: metFORMIN 500 MG TABLET PO SCH (09:34)
[2018-01-11] MEDS: LACTOBACILLUS RHAMNOSUS GG 1 CAPSULE. PO SCH ×2 (09:35→20:48)
[2018-01-11] MEDS: METOPROLOL TART IMMED RELEASE 50 MG TABLET PO SCH ×2 (09:35→20:50)
[2018-01-11] MEDS: MEGESTROL 40 MG TABLET. PO SCH (09:35)
[2018-01-11 10:28] VITALS: BP 128/64
[2018-01-11 18:06] VITALS: BP 198/66
[2018-01-11] MEDS: ATORVASTATIN CALCIUM 20 MG TABLET PO SCH (20:48)
[2018-01-11] MEDS: guaiFENesin DM 200MG/20MG 10 ML SYRUP PO PRN (20:49)
[2018-01-11] MEDS: INSULIN DETEMIR 300 UNITS/3 ML INSULN.PEN. SQ SCH (20:55)
[2018-01-12] MEDS: IPRATRPIUM/ALBUTEROL 0.5/2.5MG 3 ML NEBU. NEB SCH ×3 (05:51→21:08)
[2018-01-12 07:00] VITALS: BP 57/66
[2018-01-12] MEDS: INSULIN ASPART 300 UNITS/3 ML INSULN.PEN SQ SCH ×4 (07:30→16:58)
[2018-01-12] MEDS: MAGNESIUM CHLORIDE ER 64 MG TABLET.ER PO SCH ×2 (07:51→20:59)
[2018-01-12] MEDS: FERROUS SULFATE 325 MG TABLET. PO SCH (07:51)
[2018-01-12] MEDS: MEGESTROL 40 MG TABLET. PO SCH (07:52)
[2018-01-12] MEDS: metFORMIN 500 MG TABLET PO SCH (07:52)
[2018-01-12] MEDS: APIXABAN 5 MG TABLET. PO SCH ×2 (07:52→20:59)
[2018-01-12] MEDS: predniSONE 20 MG TABLET PO SCH (07:52)
[2018-01-12] MEDS: METOPROLOL TART IMMED RELEASE 50 MG TABLET PO SCH ×2 (07:52→20:59)
[2018-01-12] MEDS: LACTOBACILLUS RHAMNOSUS GG 1 CAPSULE. PO SCH ×2 (07:53→20:59)
[2018-01-12] MEDS: FLUTICASONE 50MCG/NASAL SPRAY 16GM BOTTLE. NS SCH (08:10)
[2018-01-12] MEDS: KETOTIFEN FUMARATE 0.025% OPHT SOLUTION BOTTLE. OU SCH ×2 (08:10→21:01)
[2018-01-12] MEDS: SODIUM CHLORIDE 0.65% NASAL SPRAY 45ML BOTTLE. NS SCH ×4 (08:10→21:01)
[2018-01-12 17:13] VITALS: BP 161/75
[2018-01-12] MEDS: ATORVASTATIN CALCIUM 20 MG TABLET PO SCH (20:59)
[2018-01-12] MEDS ORDERED: INSULIN DETEMIR 300 UNITS/3 ML INSULN.PEN. SQ SCH (21:00)
[2018-01-13] MEDS: IPRATRPIUM/ALBUTEROL 0.5/2.5MG 3 ML NEBU. NEB SCH ×2 (05:53→11:21)
[2018-01-13] MEDS: METOPROLOL TART IMMED RELEASE 50 MG TABLET PO SCH (06:02)
[2018-01-13 06:03] VITALS: BP 197/106
[2018-01-13] MEDS: INSULIN ASPART 300 UNITS/3 ML INSULN.PEN SQ SCH ×2 (07:30→12:14)
[2018-01-13] MEDS: LACTOBACILLUS RHAMNOSUS GG 1 CAPSULE. PO SCH (08:52)
[2018-01-13] MEDS: predniSONE 20 MG TABLET PO SCH (08:52)
[2018-01-13] MEDS: MAGNESIUM CHLORIDE ER 64 MG TABLET.ER PO SCH (08:53)
[2018-01-13] MEDS: MEGESTROL 40 MG TABLET. PO SCH (08:53)
[2018-01-13] MEDS: APIXABAN 5 MG TABLET. PO SCH (08:53)
[2018-01-13] MEDS: FERROUS SULFATE 325 MG TABLET. PO SCH (08:53)
[2018-01-13] MEDS: metFORMIN 500 MG TABLET PO SCH (08:53)
[2018-01-13] MEDS: FLUTICASONE 50MCG/NASAL SPRAY 16GM BOTTLE. NS SCH (08:54)
[2018-01-13] MEDS: SODIUM CHLORIDE 0.65% NASAL SPRAY 45ML BOTTLE. NS SCH ×2 (08:54→12:15)
[2018-01-13] MEDS: KETOTIFEN FUMARATE 0.025% OPHT SOLUTION BOTTLE. OU SCH (08:54)
[2018-01-13] MEDS ORDERED: MEGE40TA PO (13:37)
[2018-01-13] MEDS ORDERED: APIX5TAB3 PO (13:37)
== END 2018-01-13 14:20 | disposition home health service (06) | DRG 684 ==
LOC: LND 16:16
PROVIDERS: ADMIT Family Medicine; ATTEND Family Medicine
DX: N17.9 Acute kidney failure, unspecified (principal); E11.9 Type 2 diabetes mellitus without complications; I10 Essential (primary) hypertension; R26.81 Unsteadiness on feet; R29.6 Repeated falls; Z82.49 Family history of ischemic heart disease and other diseases of the circulatory system; Z66 Do not resuscitate
CPT/HCPCS: 36415; 80048; 82947; 94640; J0456; J0696; J7050; J7512; J7620; 97110; 97116; 97530; 97535

== ENCOUNTER 2018-01-29 11:05 | Emergency (ER) | payer MEDICARE ==
[~2018-01-29] VITALS: Ht 160 cm; Wt 63.0 kg
[2018-01-29 11:10] VITALS: BP 133/75
--- NOTE | 2018-01-29 11:44 | PHYS DOC ---
General Chief Complaint: HYPOTENSION Stated Complaint: BLOOD PRESSURE LOW Time Seen by MD: 11:43 Problems: History of Present Illness Initial Comments RN reports patient brought by family for blood pressure check. After being notified that they must check in to the ED they did so. Upon having her vitals taken being roomed and normal blood pressure they requested to leave without being seen. RN signed him out AMA. I do not see the patient, no history review of systems or physical exam. Time in the room was 11 minutes. Allergies: Coded Allergies: No Known Drug Allergies (Unverified , 03/18/16) Past Medical History Medical History: diabetes, hypertension RUKHSANA CARRERA DO Jan 29, 2018 11:44
== END 2018-01-29 11:30 | disposition left against medical advice (07) ==
LOC: ER 11:05
DX: Z01.30 Encounter for examination of blood pressure without abnormal findings (principal); I10 Essential (primary) hypertension; E11.9 Type 2 diabetes mellitus without complications; Z53.21 Procedure and treatment not carried out due to patient leaving prior to being seen by health care provider